=== PATIENT | male | born 1955 | race Caucasian/White ===

== ENCOUNTER 2018-05-30 03:04 | Inpatient (IN) | payer BC ==
[2018-05-30] VITALS (23 sets, daily range): BP systolic 109–167; BP diastolic 68–97
[~2018-05-30] VITALS: Ht 180.3 cm; Wt 65.5 kg
[2018-05-30] MEDS ORDERED: HEPARIN for IV BOLUS 10,000 UNIT/10 ML VIAL. ONE ×2 (03:17→03:45)
[2018-05-30] MEDS ORDERED: HEPARIN 25,000UTS/500ML PREMIX 0 ML IV ONE (03:17)
[2018-05-30 03:31] LABS: BASO # 0.1 x10^3/uL (0.0-0.2); BASO % 1 % (0-3); EOS # 0.1 x10^3/uL (0.0-0.7); EOS % 1 % (0-3); HEMATOCRIT 50.2 % (39.0-53.0); HEMOGLOBIN 16.9 g/dL (13.0-17.5); LYMPH # 2.3 x10^3/uL (1.0-4.8); LYMPH % 15 % (24-48); MEAN CORPUSCULAR HEMOGLOBIN 31 pg (25-35); MEAN CORPUSCULAR HGB CONC 34 g/dL (31-37); MEAN CORPUSCULAR VOLUME 91 fL (79-100); MONO # 1.3 x10^3/uL (0.0-1.1); MONO % 8 % (0-9); NEUT # 11.4 x10^3uL (1.8-7.7); NEUT % 75 % (31-73); PLATELET COUNT 277 x10^3/uL (140-400); RED CELL DISTRIBUTION WIDTH 14.1 % (11.5-14.5); WHITE BLOOD COUNT 15.2 x10^3/uL (4.0-11.0)
[2018-05-30 03:40] LABS: PROTHROMBIN TIME PATIENT 11.5 SEC (11.7-14.0)
[2018-05-30 03:42] LABS: CALCIUM 9.2 mg/dL (8.5-10.1); CREATININE 1.3 mg/dL (0.7-1.3); GFR 56.1; POTASSIUM 4.4 mmol/L (3.5-5.1)
[2018-05-30] MEDS ORDERED: LIDOCAINE 1% Multi-Dose 20 ML VIAL. ONE (03:44)
[2018-05-30] MEDS ORDERED: IODIXANOL 320 MG/ML 100 ML VIAL. ONE ×2 (03:44→04:25)
[2018-05-30] MEDS ORDERED: NITROGLYCERIN 200 MCG/2 ML SYRINGE FOR CATH/VASC LAB. ONE (03:45)
[2018-05-30] MEDS ORDERED: VERAPAMIL 5 MG/2 ML VIAL. ONE (03:45)
[2018-05-30] MEDS ORDERED: MIDAZOLAM HCL/PF 2 MG/2 ML VIAL. ONE (03:45)
[2018-05-30] MEDS ORDERED: fentaNYL PF VIAL 100 MCG/2 ML VIAL ONE (03:45)
[2018-05-30 03:48] LABS: ALBUMIN 3.8 g/dL (3.4-5.0); ALBUMIN/GLOBULIN RATIO 1.1 (1.0-1.7); TOTAL BILIRUBIN 0.6 mg/dL (0.2-1.0); TOTAL PROTEIN 7.3 g/dL (6.4-8.2)
--- NOTE | 2018-05-30 03:59 | PDOC ---
MODERATE SEDATION ASSESSMENT RISKS/ALTERNATIVES Risks/Alternatives Risks and alternatives of this type of sedation and procedure discussed with: RISK/ALTERNATIVES: Patient H & P ON CHART H & P H & P on chart and reviewed for co-morbid conditions and appropriate labs. H&P ON CHART: Yes STATUS PREG STATUS ASSESSED: N/A MEDS/ALLERGIES REVIEWED Meds/Allergies Reviewed Medications and Allergies including time and route of recently administered narcotics and sedatives. MEDS/ALLERGIES REVIEWED: Yes ASA RATING ASA RATING: III AIRWAY ASSESSMENT Airway Assessment Airway patency, oral function limitations, presence of caps, crowns, dentures, partials, and ability to extend neck assessed. AIRWAY ASSESSMENT: Yes MALLAMPATI SCORE MALLAMPATI SCORE: II PRE-SEDATION ASSESSMENT PRE-SEDATION ASSESSMENT: Yes MELISSA MA MD May 30, 2018 03:59
--- NOTE | 2018-05-30 03:59 | PDOC2 ---
CARDIOLOGY CONSULT NOTE CHEIF COMPLAINT: Chest pain HPI: Pleasant 62 y.o w/ HTN only presenting with CP since 12 a.m. He thought it was heart burn and after no resolution over 2 hours, came to ER. In ER initial EKG showed inferior STEMI. slab lifting engineer activated. Upon arrival he was in stable condition, hypertensive but denied any dyspnea. He did have chest pain. He was given asa, hep and after discussion of r/b/a to cath, he was emergently transferred to the recyclable products sorter. PMHX: HTN Tobacco abuse SOCHX: Works in [employer]. +tobacco abuse FAMHX: +CAD CURRENT MEDS: Current Medications Medications (Trade) Dose Ordered Sig/Izzy Start Time Stop Time Status Last Admin Dose Admin Aspirin (Children'S Aspirin) 324 mg 1X ONCE 05/30/18 04:00 05/30/18 04:01 05/30/18 03:42 324 MG Fentanyl Citrate (Fentanyl 2ml Vial) 100 mcg STK-MED ONCE 05/30/18 03:45 05/30/18 03:46 DC Heparin Sodium (Porcine) (Heparin Sodium) 10,000 unit STK-MED ONCE 05/30/18 03:45 05/30/18 03:46 DC Heparin Sodium/ Dextrose 500 ml @ As Directed STK-MED ONCE 05/30/18 03:17 05/30/18 03:18 DC Heparin Sodium/ Sodium Chloride 1,000 ml @ As Directed STK-MED ONCE 05/30/18 03:44 05/30/18 03:45 DC Iodixanol (Visipaque 320) 100 ml STK-MED ONCE 05/30/18 03:44 05/30/18 03:45 DC Lidocaine HCl (Lidocaine 1% 20ml Vial) 20 ml STK-MED ONCE 05/30/18 03:44 05/30/18 03:45 DC Midazolam HCl (Versed) 2 mg STK-MED ONCE 05/30/18 03:45 05/30/18 03:46 DC Nitroglycerin (Nitroglycerin) 200 mcg STK-MED ONCE 05/30/18 03:45 05/30/18 03:46 DC Nitroglycerin/ Dextrose 250 ml @ 0 mls/hr 1X ONCE 05/30/18 04:00 05/30/18 04:01 UNV 05/30/18 03:52 3 MLS/HR Verapamil HCl (Verapamil) 5 mg STK-MED ONCE 05/30/18 03:45 05/30/18 03:46 DC ALLERGIES: Allergies Coded Allergies Type Severity Reaction Last Updated Verified No Known Drug Allergies 05/30/18 No ROS: negative for 12/24 systems reviewed unless otherwise noted above in HPI PHYSICAL EXAM: Vital Signs: Vital Signs Date Time Temp Pulse Resp B/P (MAP) Pulse Ox O2 Delivery O2 Flow Rate FiO2 05/30/18 03:20 98.4 104 24 185/103 (130) 97 Room Air 98.4 Physical Exam: GEN.: No apparent distress. Alert and oriented. HEENT: Head is normocephalic, atraumatic NECK: Supple. LUNGS: Clear to auscultation. HEART: RRR, S1, S2 present. Peripheral pulses intact ABDOMEN: Soft, nontender. Positive bowel sounds. EXTREMITIES: Without any cyanosis. NEUROLOGIC: Normal speech, normal tone PSYCHIATRIC: Normal affect, normal mood. SKIN: No ulcerations DIAGNOSTIC TESTING: EKG: Inferior STEMI. Lab hgb/plts/cr wnl. Trop pending. ASSESSMENT: 1. Inferior STEMI 2. HTN 3. Tobacco abuse. PLAN: 1. Plan for cardiac cath. Final recommendations pending cath. MELISSA MA MD May 30, 2018 03:59
[2018-05-30] MEDS ORDERED: fentaNYL PF VIAL 100 MCG/2 ML VIAL IV ONE ×2 (04:00→04:30)
[2018-05-30] MEDS ORDERED: NITROGLYCERIN PREMIX 250 ML IV ONE (04:00)
[2018-05-30] MEDS ORDERED: HEPARIN for IV BOLUS 10,000 UNIT/10 ML VIAL. IV ONE (04:00)
[2018-05-30] MEDS ORDERED: ASPIRIN CHEWABLE 81 MG TABLET. PO ONE (04:00)
[2018-05-30] MEDS ORDERED: NITROGLYCERIN 200 MCG/2 ML SYRINGE FOR CATH/VASC LAB. IART ONE (04:15)
--- NOTE | 2018-05-30 04:19 | PHYS DOC ---
Past Medical History Past Medical History: Hypertension Past Surgical History: No Surgical History Additional Information: 2-2.5PPD Alcohol Use: Rarely Drug Use: Marijuana Adult General Chief Complaint Chief Complaint: CHEST PAIN HPI HPI Patient is a 62 year old M WITH cc of chest pain. onset midnight moderate in nature nonradiating center of chest pressure has not seen doctor in thirty years or more is a smoker brother had mi a couple months ago bib private car i saw ekg at 314 called stemi 315 talked to william at 317 Review of Systems Review of Systems mota by acuity Physical Exam Physical Exam Constitutional: Well developed, well nourished, no acute distress, non-toxic appearance. [] HENT: Normocephalic, atraumatic, bilateral external ears normal, oropharynx moist, no oral exudates, nose normal. [] Eyes: PERRLA, EOMI, conjunctiva normal, no discharge. [] Neck: Normal range of motion, no tenderness, supple, no stridor. [] Cardiovascular:Heart rate regular rhythm, 2/6 murmur Lungs & Thorax: Bilateral breath sounds clear to auscultation [] Abdomen: Bowel sounds normal, soft, no tenderness, no masses, no pulsatile masses. [] Skin: Warm, dry, no erythema, no rash. [] Back: No tenderness, no CVA tenderness. [] Extremities: No tenderness, no cyanosis, no clubbing, ROM intact, no edema. [] Neurologic: Alert and oriented X 3, normal motor function, normal sensory function, no focal deficits noted. [] Current Patient Data Vital Signs bp 190's hr 90's sat okay rr 14 EKG EKG stemi inferior wall noted rate [address] depressions noted. no st elev seen on right sided[] Radiology/Procedures Radiology/Procedures [] Impressions: popssible abnormality at right lung base but somewhat poor film, may need repeat once more stable Course & Med Decision Making Course & Med Decision Making Pertinent Labs and Imaging studies reviewed. (See chart for details) []stemi see hpi for ed course pt given above tx, and was taken to quality control lab tech in critical but stable condition dr thomas saw the patient in the er and the patient left the er in appropriate timeframe Critical care time was 40 minutes exclusive of procedures. Dragon Disclaimer Dragon Disclaimer This electronic medical record was generated, in whole or in part, using a voice recognition dictation system. Departure Departure Impression: Primary Impression: STEMI (ST elevation myocardial infarction) Disposition: 09 ADMITTED INPATIENT Condition: CRITICAL Referrals: NO PCP (PCP) ROMA SAHA MD May 30, 2018 04:18
[2018-05-30] MEDS ORDERED: LIDOCAINE 1% Multi-Dose 20 ML VIAL. INJ ONE (04:30)
[2018-05-30] MEDS ORDERED: VERAPAMIL 5 MG/2 ML VIAL. IART ONE (04:30)
[2018-05-30] MEDS ORDERED: MIDAZOLAM HCL/PF 2 MG/2 ML VIAL. IV ONE (04:30)
[2018-05-30] MEDS ORDERED: HEPARIN for IV BOLUS 10,000 UNIT/10 ML VIAL. IART ONE (04:30)
[2018-05-30] MEDS ORDERED: IODIXANOL 320 MG/ML 100 ML VIAL. IART ONE (04:30)
[2018-05-30] MEDS ORDERED: hydrALAZINE 20 MG/ML VIAL. ONE (04:35)
[2018-05-30] MEDS ORDERED: niCARdipine 50 MG in IV NORMAL SALINE 250ML 250 ML IV PRN (04:45)
[2018-05-30] MEDS ORDERED: hydrALAZINE 20 MG/ML VIAL. IVP ONE (05:00)
[2018-05-30] MEDS ORDERED: ATROPINE 0.5 MG/5 ML DISP.SYRINGE. IV PRN (05:00)
[2018-05-30] MEDS ORDERED: 0.9 % SODIUM CHLORIDE 10 ML DISP.SYRIN. IV PRN (05:00)
[2018-05-30] MEDS ORDERED: ACETAMINOPHEN 325 MG TABLET. PO PRN (05:00)
[2018-05-30] MEDS ORDERED: NITROGLYCERIN SUBLINGUAL 0.4 MG BOTTLE OF 25. SL PRN (05:00)
[2018-05-30] MEDS ORDERED: AMIODARONE 150 MG in IV DEXTROSE 5% 100ML 100 ML IV PRN (05:00)
[2018-05-30] MEDS ORDERED: LIDOCAINE 2% 100 MG/5 ML SYRINGE. IV PRN (05:00)
--- NOTE | 2018-05-30 05:16 | CARD ---
MR#: [id number] Date of Study: 05/30/2018 Ordering Physician: MELISSA MONTOYA, Referring Physician: BELEN MOSER, Tech: RT Pb (R) KRISTOPHER APPROVED REPORT Technologist: RT Pb (R) KRISTOPHER Nurse: Bonnie Workman R.N. Procedure(s) performed: moderate sedation 51 MINUTES LHC, Coronary angiography, Aortogram, Left ventriculography HISTORY The patient is a 62 year-old male with a history of : tobacco history() , hypertension. INDICATION The indication(s) include : STEMI . [facility] Clinical Frailty Scale [facility] Clinical Frailty Scale: Well Heart Failure Heart Failure: No PROCEDURE NARRATIVE CLINICAL INFORMATION: 62-year-old man with past medical history of hypertension and tobacco abuse as well as significant [facility] history of coronary artery disease presented to the ER with stuttering chest pain for approximat kemar 2 hours. Initial EKG was suggestive of inferior ST elevation IA. The Wood Pattern Maker was activated and t he patient was brought emergently to the catheter lab. INFORMED CONSENT: After explaining the risks and benefits of the procedure and alternatives, informed VERBAL consent was obtained. The patient was brought emergently to the cardiac catheterization lab. A timeout was performed confi rming the patient's name, date of , procedure, and site of procedure. All necessary personnel w ere wearing the appropriate protective equipment and radiation monitor devices. (See nursing notes for medications administered). ACCESS: The right wrist was sterilely prepped and draped in the usual fashion. The right wrist was infiltrat ed with 1 mL of 2% lidocaine for subcutaneous anesthesia. A 6 Frisian Terumo glide sheath was inserte d into the right radial artery without difficulty. CORONARY ANGIOGRAPHY: Right and left coronary angiography was performed using a 6Fr TIG 4.0 catheter and a JR4 guide marisol ter. Left ventricular end diastolic pressure was obtained with a pigtail catheter and pullback was p erformed after left ventriculography. A supravalvular aortography was performed to rule out dissectio n. All catheter exchanges and advancements were performed over a guidewire. CLOSURE: At case completion the right radial sheath was removed and a Terumo radial band was applied with 13 m l of air. COMPLICATIONS: The patient tolerated the procedure well and there were no immediate complications. FINDINGS: HEMODYNAMICS: LVEDP 15 mm Hg No gradient on LV to aortic pullback. AO: 200/90 LEFT VENTRICULOGRAM: EF 55% Anterobasal: Normal. Anterolateral: Normal Apical: Normal Diaphragmatic: Normal Posterobasal: Normal CORONARY ANGIOGRAPHY: LM is a large caliber vessel with mild luminal irregularities. LAD is a large caliber vessel with normal angiographic appearance. D1 is a moderate caliber vessel with normal angiographic apeparance. LCx is a moderate caliber non-dominant vessel with mild luminal irregularities of up to 30%. OM1 is a small caliber vessel with normal angiographic appearance. OM2 is a small caliber vessel with mild luminal irregularities. RCA is a large caliber dominant vessel with with mild irregularities of up to 30% stenosis. The ostiu m of the RCA on initial injection suggestive of thrombus with possible embolization into the conus/ri ght atrial branch. RPDA and RPL are moderate caliber vessels with mild luminal irregularities. Cannot rule out small dis krissy vessel cut-off suggestive of embolic phenomenon. Overall based on normal LV function, no obvious thrombus, sustaining noted in the large vessels an in tervention was deferred in favor of medical therapy with anticoagulation. Etiology is likely small ve ssel ischemic disease in the setting of HTN, tobacco abuse versus occult emboli. At present, no clear intervenable lesions. Conclusion 1. Probable small vessel ischemic disease versus occult embolic phenomenon 2. Normal LVEDP, Normal LV function. No significant coronary disease. 3. No evidence of aortic dissection. Recommendations ASA 81mg daily Hep gtt per protocol for 24 hours High dose statin therapy Nicardipine gtt for BP control. Signed by : Melissa Montoya, Electronically Approved : 05/30/2018 05:15:38
[2018-05-30] MEDS: fentaNYL PF VIAL 100 MCG/2 ML VIAL IV PRN ×3 (05:20→12:22)
[2018-05-30] MEDS ORDERED: ANTI-COAG MONITOR BY PHARMACY. MC PRN (05:30)
[2018-05-30] MEDS: HEPARIN for IV BOLUS 10,000 UNIT/10 ML VIAL. IV PRN ×3 (05:35→20:07)
[2018-05-30] MEDS: HEPARIN 25,000UTS/500ML PREMIX 500 ML IV PRN (05:38)
[2018-05-30] MEDS ORDERED: LISI10TA2 PO (05:58)
--- NOTE | 2018-05-30 05:59 | EKG ---
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
--- NOTE | 2018-05-30 06:00 | EKG ---
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
--- NOTE | 2018-05-30 06:25 | NUR ---
Patient arrived on unit at 0515 accompanied by CL RNs. Patient alert and oriented, able to answer all admission questions when asked. Patient complains of pain 5/10 in chest, does not radiate, feels like a dull heaviness. Fentanyl was given with relief. TR band over right radial access site. Educated on need for smoking cessation. Will continue to monitor.
--- NOTE | 2018-05-30 07:44 | RAD ---
PROCEDURE: PORTABLE CHEST 1V CLINICAL INDICATION: chest pain COMPARISON: None FINDINGS: No pneumothorax identified. Cardiac and mediastinal contours unremarkable. No pulmonary consolidation or acute airspace disease. No acute osseous abnormalities identified. IMPRESSION: No pulmonary consolidation or acute airspace disease. Electronically signed by: Dallas Scales DO (05/30/2018 7:41 AM) [facility]
--- NOTE | 2018-05-30 12:52 | PDOC1 ---
History and Physical Date of Admission Date of Admission 05/30/2018 Identification/Chief Complaint Chief Complaint My chest hurt Problems: (1) STEMI (ST elevation myocardial infarction) Source Source: Chart review, Patient History of Present Illness History of Present Illness Patient is a 62-year-old gentleman with no significant past medical history has a long-standing history of tobacco abuse was in his usual state of health until the evening of his admission when after dinner he went to lay down. Discomfort over his precordial area woke him up from his sleep midnight the patient decided to pace around his household and tried to go back to sleep while watching TV. Patient says that discomfort It Was Indigestion He Did Not Have Radiation to the Arm and Jaw. The Patient Denied Any Diaphoresis No Sensation of Impending Doom No Vomiting Reported No Alleviating or Aggravating Factors. Due to the progressive nature of his pain and patient decided to come to the emergency department for evaluation. He was noted to have acute ST segment elevations of the inferior leads pumping a STEMI protocol patient was taken emergently to the cardiac catheter lab with the following results: LEFT VENTRICULOGRAM: EF 55% Anterobasal: Normal. Anterolateral: Normal Apical: Normal Diaphragmatic: Normal Posterobasal: Normal CORONARY ANGIOGRAPHY: LM is a large caliber vessel with mild luminal irregularities. LAD is a large caliber vessel with normal angiographic appearance. D1 is a moderate caliber vessel with normal angiographic apeparance. LCx is a moderate caliber non-dominant vessel with mild luminal irregularities of up to 30%. OM1 is a small caliber vessel with normal angiographic appearance. OM2 is a small caliber vessel with mild luminal irregularities. RCA is a large caliber dominant vessel with with mild irregularities of up to 30 % stenosis. The ostium of the RCA on initial injection suggestive of thrombus with possible embolization into the conus/right atrial branch. RPDA and RPL are moderate caliber vessels with mild luminal irregularities. Cannot rule out small distal vessel cut-off suggestive of embolic phenomenon. Overall based on normal LV function, no obvious thrombus, sustaining noted in the large vessels an intervention was deferred in favor of medical therapy with anticoagulation. Etiology is likely small vessel ischemic disease in the setting of HTN, tobacco abuse versus occult emboli. At present, no clear intervenable lesions. Conclusion 1. Probable small vessel ischemic disease versus occult embolic phenomenon 2. Normal LVEDP, Normal LV function. No significant coronary disease. 3. No evidence of aortic dissection. Recommendations ASA 81mg daily Hep gtt per protocol for 24 hours High dose statin therapy Nicardipine gtt for BP control. Patient is being seen in the intensive care unit post catheter. He is in no acute distress he denies chest discomfort he relates to me that his diet has been quite poor ever since he got and years ago. He usually eats at [employer] every day and smokes about a pack of cigarettes a day. Extensive counseling regarding dietary changes and the need for quitting smoking was stressed Current Medications Current Medications Current Medications Medications (Trade) Dose Ordered Sig/Izzy Start Time Stop Time Status Last Admin Dose Admin Acetaminophen (Tylenol) 650 mg PRN Q6HRS PRN 05/30/18 05:00 Amiodarone HCl 150 mg/Dextrose 103 ml @ 600 mls/hr 1X PRN PRN 05/30/18 05:00 Aspirin (Children'S Aspirin) 324 mg 1X ONCE 05/30/18 04:00 05/30/18 04:01 DC 05/30/18 03:42 324 MG Atropine Sulfate (ATROPINE 0.5mg SYRINGE) 0.5 mg PRN 1X PRN 05/30/18 05:00 Fentanyl Citrate (Fentanyl 2ml Vial) 50 mcg PRN Q1HR PRN 05/30/18 05:00 05/30/18 12:22 50 MCG Heparin Sodium (Porcine) (Heparin Sodium) 1,950 unit PRN Q6HRS PRN 05/30/18 05:30 05/30/18 05:35 1,950 UNIT Heparin Sodium/ Dextrose 500 ml @ 0 mls/hr CONT PRN 05/30/18 05:30 05/30/18 05:38 18.507 MLS/HR Heparin Sodium/ Sodium Chloride (HEPARIN for ARTERIAL LINE FLUSH) 1,000 unit 1X ONCE 05/30/18 04:30 05/30/18 04:31 DC 05/30/18 04:55 1,000 UNIT Hydralazine HCl (Apresoline Inj) 10 mg 1X ONCE 05/30/18 05:00 05/30/18 05:01 DC 05/30/18 04:57 10 MG Info (Anti-Coagulation Monitoring By Pharmacy) 1 each PRN DAILY PRN 05/30/18 05:30 05/30/18 05:26 1 EACH Iodixanol (Visipaque 320) 100 ml STK-MED ONCE 05/30/18 04:25 05/30/18 04:26 DC Lidocaine HCl (Lidocaine 1% 20ml Vial) 20 ml 1X ONCE 05/30/18 04:30 05/30/18 04:31 DC 05/30/18 04:56 2 ML Lidocaine HCl (Lidocaine HCl 2% Abboject) 100 mg 1X PRN PRN 05/30/18 05:00 Midazolam HCl (Versed) 2 mg 1X ONCE 05/30/18 04:30 05/30/18 04:31 DC 05/30/18 04:58 2 MG Nicardipine HCl (Cardene) 25 mg STK-MED ONCE 05/30/18 04:31 05/30/18 04:32 DC Nicardipine HCl 50 mg/Sodium Chloride 250 ml @ 25 mls/hr CONT PRN 05/30/18 04:45 05/30/18 04:43 20 MLS/HR Nitroglycerin (Nitroglycerin) 200 mcg 1X ONCE 05/30/18 04:15 05/30/18 04:23 DC 05/30/18 04:15 200 MCG Nitroglycerin (Nitrostat) 0.4 mg PRN Q5MIN PRN 05/30/18 05:00 Nitroglycerin/ Dextrose 250 ml @ 0 mls/hr 1X ONCE 05/30/18 04:00 05/30/18 04:01 DC 05/30/18 03:52 3 MLS/HR Sodium Chloride (Normal Saline Flush) 3 ml QSHIFT PRN 05/30/18 05:00 Verapamil HCl (Verapamil) 2.5 mg 1X ONCE 05/30/18 04:30 05/30/18 04:31 DC 05/30/18 04:57 2.5 MG Allergies Allergies Allergies Coded Allergies Type Severity Reaction Last Updated Verified No Known Drug Allergies 05/30/18 No ROS Review of System CONSTITUTIONAL: No fever or chills EYES: No recent changes SKIN: No rash or itching CARDIOVASCULAR: No chest pain, syncope, palpitations, or edema RESPIRATORY: No SOB or cough GASTROINTESTINAL: No nausea, vomiting or abdominal pain NEUROLOGICAL: No headaches or weakness ENDOCRINE: No cold or heat intolerance GENITOURINARY: No urgency or frequency of urination MUSCULOSKELETAL: No back pain or joint pain LYMPHATICS: No enlarged lymph nodes PSYCHIATRIC: No anxiety or depression Physical Exam Physical Exam GEN.: No apparent distress. Alert and oriented. HEENT: Head is normocephalic, atraumatic NECK: Supple. LUNGS: Clear to auscultation. HEART: RRR, S1, S2 present. Peripheral pulses intact ABDOMEN: Soft, nontender. Positive bowel sounds. EXTREMITIES: Without any cyanosis. NEUROLOGIC: Normal speech, normal tone PSYCHIATRIC: Normal affect, normal mood. SKIN: No ulcerations Vitals Vitals Vital Signs Date Time Temp Pulse Resp B/P (MAP) Pulse Ox O2 Delivery O2 Flow Rate FiO2 05/30/18 12:22 18 96 Room Air 05/30/18 12:00 98.0 96 143/81 (101) 98.0 05/30/18 05:00 2.0 Labs Labs Laboratory Tests Test 05/30/18 03:17 05/30/18 06:08 05/30/18 09:20 05/30/18 11:35 White Blood Count 15.2 x10^3/uL (4.0-11.0) Red Blood Count 5.50 x10^6/uL (4.30-5.70) Hemoglobin 16.9 g/dL (13.0-17.5) Hematocrit 50.2 % (39.0-53.0) Mean Corpuscular Volume 91 fL (79-100) Mean Corpuscular Hemoglobin 31 pg (25-35) Mean Corpuscular Hemoglobin Concent 34 g/dL (31-37) Red Cell Distribution Width 14.1 % (11.5-14.5) Platelet Count 277 x10^3/uL (140-400) Neutrophils (%) (Auto) 75 % (31-73) Lymphocytes (%) (Auto) 15 % (24-48) Monocytes (%) (Auto) 8 % (0-9) Eosinophils (%) (Auto) 1 % (0-3) Basophils (%) (Auto) 1 % (0-3) Neutrophils # (Auto) 11.4 x10^3uL (1.8-7.7) Lymphocytes # (Auto) 2.3 x10^3/uL (1.0-4.8) Monocytes # (Auto) 1.3 x10^3/uL (0.0-1.1) Eosinophils # (Auto) 0.1 x10^3/uL (0.0-0.7) Basophils # (Auto) 0.1 x10^3/uL (0.0-0.2) Prothrombin Time 11.5 SEC (11.7-14.0) Prothromb Time International Ratio 0.9 (0.8-1.1) Sodium Level 138 mmol/L (136-145) Potassium Level 4.4 mmol/L (3.5-5.1) Chloride Level 100 mmol/L (98-107) Carbon Dioxide Level 25 mmol/L (21-32) Anion Gap 13 (6-14) Blood Urea Nitrogen 33 mg/dL (8-26) Creatinine 1.3 mg/dL (0.7-1.3) Estimated GFR (Cockcroft-Gault) 56.1 BUN/Creatinine Ratio 25 (6-20) Glucose Level 114 mg/dL (70-99) Calcium Level 9.2 mg/dL (8.5-10.1) Total Bilirubin 0.6 mg/dL (0.2-1.0) Aspartate Amino Transf (AST/SGOT) 18 U/L (15-37) Alanine Aminotransferase (ALT/SGPT) 24 U/L (16-63) Alkaline Phosphatase 109 U/L (46-116) Troponin I Quantitative 0.185 ng/mL (0.000-0.055) 1.205 ng/mL (0.000-0.055) 6.613 ng/mL (0.000-0.055) TR-Lhg-M-Type Natriuretic Peptide 68 pg/mL (0-124) Total Protein 7.3 g/dL (6.4-8.2) Albumin 3.8 g/dL (3.4-5.0) Albumin/Globulin Ratio 1.1 (1.0-1.7) Heparin Anti-Xa Act, Unfractionated < 0.10 IU/mL (0.30-0.70) Laboratory Tests Test 05/30/18 03:17 05/30/18 06:08 05/30/18 09:20 05/30/18 11:35 White Blood Count 15.2 x10^3/uL (4.0-11.0) Red Blood Count 5.50 x10^6/uL (4.30-5.70) Hemoglobin 16.9 g/dL (13.0-17.5) Hematocrit 50.2 % (39.0-53.0) Mean Corpuscular Volume 91 fL (79-100) Mean Corpuscular Hemoglobin 31 pg (25-35) Mean Corpuscular Hemoglobin Concent 34 g/dL (31-37) Red Cell Distribution Width 14.1 % (11.5-14.5) Platelet Count 277 x10^3/uL (140-400) Neutrophils (%) (Auto) 75 % (31-73) Lymphocytes (%) (Auto) 15 % (24-48) Monocytes (%) (Auto) 8 % (0-9) Eosinophils (%) (Auto) 1 % (0-3) Basophils (%) (Auto) 1 % (0-3) Neutrophils # (Auto) 11.4 x10^3uL (1.8-7.7) Lymphocytes # (Auto) 2.3 x10^3/uL (1.0-4.8) Monocytes # (Auto) 1.3 x10^3/uL (0.0-1.1) Eosinophils # (Auto) 0.1 x10^3/uL (0.0-0.7) Basophils # (Auto) 0.1 x10^3/uL (0.0-0.2) Prothrombin Time 11.5 SEC (11.7-14.0) Prothromb Time International Ratio 0.9 (0.8-1.1) Sodium Level 138 mmol/L (136-145) Potassium Level 4.4 mmol/L (3.5-5.1) Chloride Level 100 mmol/L (98-107) Carbon Dioxide Level 25 mmol/L (21-32) Anion Gap 13 (6-14) Blood Urea Nitrogen 33 mg/dL (8-26) Creatinine 1.3 mg/dL (0.7-1.3) Estimated GFR (Cockcroft-Gault) 56.1 BUN/Creatinine Ratio 25 (6-20) Glucose Level 114 mg/dL (70-99) Calcium Level 9.2 mg/dL (8.5-10.1) Total Bilirubin 0.6 mg/dL (0.2-1.0) Aspartate Amino Transf (AST/SGOT) 18 U/L (15-37) Alanine Aminotransferase (ALT/SGPT) 24 U/L (16-63) Alkaline Phosphatase 109 U/L (46-116) Troponin I Quantitative 0.185 ng/mL (0.000-0.055) 1.205 ng/mL (0.000-0.055) 6.613 ng/mL (0.000-0.055) JX-Twf-H-Type Natriuretic Peptide 68 pg/mL (0-124) Total Protein 7.3 g/dL (6.4-8.2) Albumin 3.8 g/dL (3.4-5.0) Albumin/Globulin Ratio 1.1 (1.0-1.7) Heparin Anti-Xa Act, Unfractionated < 0.10 IU/mL (0.30-0.70) VTE Prophylaxis Ordered VTE Prophylaxis Devices: Yes VTE Pharmacological Prophylaxi: Yes Assessment/Plan Assessment/Plan STEMI code the emergency department status post left heart catheter with no amenable lesions for stenting Hypertension Dyslipidemia Plan: Follow recommendations from cardiology Stepdown unit when bed available Reassess in the a.m. Further recommendations based on the clinical course HIWOT ROBLES MD May 30, 2018 12:52
[2018-05-30] MEDS ORDERED: LABETALOL 20 MG/4 ML DISP.SYRIN. IVP PRN (14:45)
[2018-05-30] MEDS ORDERED: LISINOPRIL 10 MG TABLET PO ONE (15:00)
[2018-05-30] MEDS: ASPIRIN ENTERIC COATED 81 MG TABLET.DR. PO SCH (15:01)
[2018-05-30 15:18] LABS: CHOLESTEROL/HDL RATIO 5.3
--- NOTE | 2018-05-30 16:43 | CARD ---
MR#: [id number] Date of Study: 05/30/2018 Ordering Physician: MARY FLAHERTY, Referring Physician: BELEN MOSER Tech: Adri Lopez DEJA APPROVED REPORT EXAM: Two-dimensional and M-mode echocardiogram with Doppler and color Doppler. Other Information Quality : Technically Limited Technically limited study due to smoking-lung interference/rib space INDICATION STEMI 2D DIMENSIONS Left Atrium(2D)2.2 (1.6-4.0cm)IVSd1.2 (0.7-1.1cm) Aortic Root(2D)2.4 (2.0-3.7cm)LVDd4.0 (3.9-5.9cm) LVOT Diameter2.0 (1.8-2.4cm)PWd1.3 (0.7-1.1cm) LVDs2.9 (2.5-4.0cm)FS (%) 26.8 % SV37.3 ml Aortic Valve AoV Peak Dillon.93.0cm/sAoV VTI14.6cm AO Peak GR.3.5mmHgLVOT VTI 10.63cm AO Mean GR.2mmHgAVA (VTI)2.30cm2 AI P 1/2 [id number] Tricuspid Valve TR P. [id number]/sRAP [id number] TR Peak Gr.[id number] LEFT VENTRICLE The left ventricle is normal size. There is mild concentric left ventricular hypertrophy. Left ventri maverick systolic function is low normal. The Ejection Fraction is 50-55%. There are no regional wall sergio on abnormalities. RIGHT VENTRICLE The right ventricle is normal size. The right ventricular systolic function is normal. ATRIA The left atrium size is normal. The right atrium size is normal. The interatrial septum is intact wit h no evidence for an atrial septal defect or patent foramen ovale as noted on 2-D or Doppler imaging. AORTIC VALVE The aortic valve is calcified but opens well. Doppler and Color Flow revealed no significant aortic r egurgitation. There is no significant aortic valvular stenosis. MITRAL VALVE The mitral valve is calcified but opens well. There is no evidence of mitral valve prolapse. There is no mitral valve stenosis. Doppler and Color-flow revealed trace to mild mitral regurgitation. TRICUSPID VALVE The tricuspid valve is normal in structure and function. Doppler and Color Flow revealed trace tricus pid regurgitation. The PA pressure was estimated at 30 mmHg. There is no tricuspid valve stenosis. PULMONIC VALVE The pulmonary valve is normal in structure and function. Doppler and Color Flow revealed trace pulmon ic valvular regurgitation. There is no pulmonic valvular stenosis. GREAT VESSELS The aortic root is normal in size. The ascending aorta is not well seen. The IVC is normal in size an d collapses >50% with inspiration. PERICARDIAL EFFUSION There is no evidence of significant pericardial effusion. Critical Notification Critical Value: No <Conclusion> The left ventricle is normal size. Left ventricle systolic function is low normal. The Ejection Fraction is 50-55%. There is mild concentric left ventricular hypertrophy. There is no significant aortic valvular stenosis. Doppler and Color Flow revealed no significant aortic regurgitation. Doppler and Color-flow revealed trace to mild mitral regurgitation. Doppler and Color Flow revealed trace tricuspid regurgitation. The PA pressure was estimated at 30 mmHg. Signed by : Thomas Castro MD Electronically Approved : 05/30/2018 16:43:18
[2018-05-30] MEDS ORDERED: ATORVASTATIN CALCIUM 40 MG TABLET. PO SCH (21:00)
[2018-05-31 03:50] VITALS: BP 117/73
[2018-05-31] MEDS: HEPARIN 25,000UTS/500ML PREMIX 500 ML IV PRN (04:16)
[2018-05-31 07:26] VITALS: BP 125/86
--- NOTE | 2018-05-31 07:51 | EKG ---
[facility] [address] [place] [address] Test Date: 2018-05-31 Test Time: 07:45:09 Pat Name: SHAKIRA ANN Department: Room: 261 1 Gender: M Certified Orthotist/Pedorthist: LETY : 1955 Requested By: MELISSA MA Order Number: [id number] Reading MD: Melissa Ma MD Measurements Intervals [place] Rate: 78 P: 61 NH: 162 QRS: -90 QRSD: 130 T: 8 QT: 400 QTc: 460 Interpretive Statements SINUS RHYTHM RBBB INFERIOR INFARCT Electronically Signed On 06-01-2018 17:20:06 CDT by Melissa Ma MD
[2018-05-31] MEDS: ASPIRIN ENTERIC COATED 81 MG TABLET.DR. PO SCH (08:30)
[2018-05-31] MEDS ORDERED: LISINOPRIL 10 MG TABLET PO SCH (09:00)
--- NOTE | 2018-05-31 10:51 | PDOC ---
CARDIO Progress Notes Date and Time Date of Service 05/31/18 Time of Evaluation 1015 Subjective Subjective: No Chest Pain, No shortness of breath, No Palpitations Vitals Vitals Vital Signs Date Time Temp Pulse Resp B/P (MAP) Pulse Ox O2 Delivery O2 Flow Rate FiO2 05/31/18 08:30 81 125/86 05/31/18 08:00 Room Air 2.0 05/31/18 07:26 98.1 18 93 98.1 Weight Weight [ ] Input and Output Intake and Output Intake and Output 05/31/18 07:00 Intake Total 2009.15 ml Output Total 1275 ml Balance 734.15 ml Intake Oral 1440 ml IV Total 296.15 ml Other 273 ml Output Urine Total 1275 ml # Voids 1 Laboratory Labs Laboratory Tests Test 05/30/18 11:35 05/30/18 19:15 05/31/18 01:55 05/31/18 08:15 Heparin Anti-Xa Act, Unfractionated < 0.10 IU/mL (0.30-0.70) 0.11 IU/mL (0.30-0.70) 0.43 IU/mL (0.30-0.70) 0.40 IU/mL (0.30-0.70) Physical Exam HEENT: Neck Supple W Full Motion Chest: Symmetric Heart: S1S2, RRR Abdomen: Soft N/T Extremities: No Edema Neurology: alert, oriented, follow commands Assessment Assessment 1. STEMI; cardiac cath without significant coronary disease. Culprit small vessel ischemic disease versus occult embolic phenomenon. Echo showed preserved LV systolic function with an EF of 50-55%. 2. Hypertension; controlled 3. Dyslipidemia; statin 4. Tobaccoism Recommendations Discontinue heparin. Add Eliquis for OAC Continue ASA, statin, EWA Add low-dose BB Discussed/encouraged smoking cessation May discharge from a CV standpoint and f/u in our office with Dr. Montoya as scheduled DYLAN RAMOS APRN May 31, 2018 10:51
[2018-05-31 11:10] VITALS: BP 121/70
--- NOTE | 2018-05-31 11:11 | PDOC ---
Core Measures: STEMI/NSTEMI Preference Rocky: ASA on Arrival: Yes ASA on Discharge: Yes Discharge Beta Kunal: Yes Discharge EWA-I/ARB: Yes Discharge statin: Yes Smoking cessation counseling: Yes Cardiac rehabilitation: Yes Eval of LV Systolic Function: Yes (50-55%) DYLAN RAMOS APRN May 31, 2018 11:11
--- NOTE | 2018-05-31 12:00 | PDOC ---
PROGRESS NOTES History of Present Illness History of Present Illness Assessment/Plan Assessment/Plan STEMI code the emergency department status post left heart catheter with no amenable lesions for stenting Hypertension Dyslipidemia Plan: Follow recommendations from cardiology Stepdown unit when bed available May discharge from a CV standpoint and f/u with Dr. Montoya as scheduled feeling ok, agrees to stop smoking, neds off work until sees PCP D/C PLANNING 34 MIN Vitals Vitals Vital Signs Date Time Temp Pulse Resp B/P (MAP) Pulse Ox O2 Delivery O2 Flow Rate FiO2 05/31/18 11:10 97.9 80 18 121/70 (87) 94 Room Air 97.9 05/31/18 08:00 2.0 Physical Exam Physical Exam Constitutional: Well developed, well nourished, no acute distress, non-toxic appearance. [] HENT: Normocephalic, atraumatic, bilateral external ears normal, oropharynx moist, no oral exudates, nose normal. [] Eyes: PERRLA, EOMI, conjunctiva normal, no discharge. [] Neck: Normal range of motion, no tenderness, supple, no stridor. [] Cardiovascular:Heart rate regular rhythm, 2/6 murmur Lungs & Thorax: Bilateral breath sounds clear to auscultation [] Abdomen: Bowel sounds normal, soft, no tenderness, no masses, no pulsatile masses. [] Skin: Warm, dry, no erythema, no rash. [] Back: No tenderness, no CVA tenderness. [] Extremities: No tenderness, no cyanosis, no clubbing, ROM intact, no edema. [] Neurologic: Alert and oriented X 3, normal motor function, normal sensory function, no focal deficits noted. [] General: Alert, Oriented X3, Cooperative, No acute distress Heart: Regular rate Lungs: Clear Extremities: No cyanosis Labs LABS Laboratory Tests Test 05/30/18 19:15 05/31/18 01:55 05/31/18 08:15 Heparin Anti-Xa Act, Unfractionated 0.11 IU/mL (0.30-0.70) 0.43 IU/mL (0.30-0.70) 0.40 IU/mL (0.30-0.70) Comment Review of Relevant I have reviewed the following items alexandra (where applicable) has been applied. Labs Laboratory Tests Test 05/30/18 03:17 05/30/18 06:00 05/30/18 06:08 05/30/18 09:20 White Blood Count 15.2 x10^3/uL (4.0-11.0) Red Blood Count 5.50 x10^6/uL (4.30-5.70) Hemoglobin 16.9 g/dL (13.0-17.5) Hematocrit 50.2 % (39.0-53.0) Mean Corpuscular Volume 91 fL (79-100) Mean Corpuscular Hemoglobin 31 pg (25-35) Mean Corpuscular Hemoglobin Concent 34 g/dL (31-37) Red Cell Distribution Width 14.1 % (11.5-14.5) Platelet Count 277 x10^3/uL (140-400) Neutrophils (%) (Auto) 75 % (31-73) Lymphocytes (%) (Auto) 15 % (24-48) Monocytes (%) (Auto) 8 % (0-9) Eosinophils (%) (Auto) 1 % (0-3) Basophils (%) (Auto) 1 % (0-3) Neutrophils # (Auto) 11.4 x10^3uL (1.8-7.7) Lymphocytes # (Auto) 2.3 x10^3/uL (1.0-4.8) Monocytes # (Auto) 1.3 x10^3/uL (0.0-1.1) Eosinophils # (Auto) 0.1 x10^3/uL (0.0-0.7) Basophils # (Auto) 0.1 x10^3/uL (0.0-0.2) Prothrombin Time 11.5 SEC (11.7-14.0) Prothromb Time International Ratio 0.9 (0.8-1.1) Sodium Level 138 mmol/L (136-145) Potassium Level 4.4 mmol/L (3.5-5.1) Chloride Level 100 mmol/L (98-107) Carbon Dioxide Level 25 mmol/L (21-32) Anion Gap 13 (6-14) Blood Urea Nitrogen 33 mg/dL (8-26) Creatinine 1.3 mg/dL (0.7-1.3) Estimated GFR (Cockcroft-Gault) 56.1 BUN/Creatinine Ratio 25 (6-20) Glucose Level 114 mg/dL (70-99) Calcium Level 9.2 mg/dL (8.5-10.1) Total Bilirubin 0.6 mg/dL (0.2-1.0) Aspartate Amino Transf (AST/SGOT) 18 U/L (15-37) Alanine Aminotransferase (ALT/SGPT) 24 U/L (16-63) Alkaline Phosphatase 109 U/L (46-116) Troponin I Quantitative 0.185 ng/mL (0.000-0.055) 1.205 ng/mL (0.000-0.055) 6.613 ng/mL (0.000-0.055) BY-Smy-D-Type Natriuretic Peptide 68 pg/mL (0-124) Total Protein 7.3 g/dL (6.4-8.2) Albumin 3.8 g/dL (3.4-5.0) Albumin/Globulin Ratio 1.1 (1.0-1.7) Nasal Screen MRSA (PCR) Negative (Negative) Triglycerides Level 111 mg/dL (0-150) Cholesterol Level 222 mg/dL (0-200) LDL Cholesterol, Calculated 158 mg/dL (0-100) VLDL Cholesterol, Calculated 22 mg/dL (0-40) Non-HDL Cholesterol Calculated 180 mg/dL (0-129) HDL Cholesterol 42 mg/dL (40-60) Cholesterol/HDL Ratio 5.3 Test 05/30/18 11:35 05/30/18 19:15 05/31/18 01:55 05/31/18 08:15 Heparin Anti-Xa Act, Unfractionated < 0.10 IU/mL (0.30-0.70) 0.11 IU/mL (0.30-0.70) 0.43 IU/mL (0.30-0.70) 0.40 IU/mL (0.30-0.70) Laboratory Tests Test 05/30/18 19:15 05/31/18 01:55 05/31/18 08:15 Heparin Anti-Xa Act, Unfractionated 0.11 IU/mL (0.30-0.70) 0.43 IU/mL (0.30-0.70) 0.40 IU/mL (0.30-0.70) Medications Current Medications Heparin Sodium (Porcine) (Heparin Sodium) 10,000 unit STK-MED ONCE .ROUTE ; Start 05/30/18 at 03:17; Stop 05/30/18 at 03:18; Status DC Heparin Sodium/ Dextrose 0 ml @ As Directed STK-MED ONCE IV ; Start 05/30/18 at 03:17; Stop 05/30/18 at 03:18; Status DC Aspirin (Children'S Aspirin) 324 mg 1X ONCE PO Last administered on 05/30/18at 03:42; Start 05/30/18 at 04:00; Stop 05/30/18 at 04:01; Status DC Fentanyl Citrate (Fentanyl 2ml Vial) 50 mcg 1X ONCE IV Last administered on at 03:42; Start 05/30/18 at 04:00; Stop 05/30/18 at 04:01; Status DC Heparin Sodium (Porcine) (Heparin Sodium) 4,000 unit 1X ONCE IV Last administered on 05/30/18at 03:18; Start 05/30/18 at 04:00; Stop 05/30/18 at 04:01 ; Status DC Iodixanol (Visipaque 320) 100 ml STK-MED ONCE .ROUTE ; Start 05/30/18 at 03:44; Stop 05/30/18 at 03:45; Status DC Lidocaine HCl (Lidocaine 1% 20ml Vial) 20 ml STK-MED ONCE .ROUTE ; Start at 03:44; Stop 05/30/18 at 03:45; Status DC Heparin Sodium/ Sodium Chloride 1,000 ml @ As Directed STK-MED ONCE .ROUTE ; Start 05/30/18 at 03:44; Stop 05/30/18 at 03:45; Status DC Fentanyl Citrate (Fentanyl 2ml Vial) 100 mcg STK-MED ONCE .ROUTE ; Start at 03:45; Stop 05/30/18 at 03:46; Status DC Midazolam HCl (Versed) 2 mg STK-MED ONCE .ROUTE ; Start 05/30/18 at 03:45; Stop 05/30/18 at 03:46; Status DC Heparin Sodium (Porcine) (Heparin Sodium) 10,000 unit STK-MED ONCE .ROUTE ; Start 05/30/18 at 03:45; Stop 05/30/18 at 03:46; Status DC Verapamil HCl (Verapamil) 5 mg STK-MED ONCE .ROUTE ; Start 05/30/18 at 03:45; Stop 05/30/18 at 03:46; Status DC Nitroglycerin (Nitroglycerin) 200 mcg STK-MED ONCE .ROUTE ; Start 05/30/18 at 03 :45; Stop 05/30/18 at 03:46; Status DC Nitroglycerin/ Dextrose 250 ml @ 0 mls/hr 1X ONCE IV Last administered on 05/30at 03:52; Start 05/30/18 at 04:00; Stop 05/30/18 at 04:01; Status DC Nitroglycerin (Nitroglycerin) 200 mcg 1X ONCE IART Last administered on at 04:15; Start 05/30/18 at 04:15; Stop 05/30/18 at 04:23; Status DC Verapamil HCl (Verapamil) 2.5 mg 1X ONCE IART Last administered on 05/30/18at 04:57; Start 05/30/18 at 04:30; Stop 05/30/18 at 04:31; Status DC Heparin Sodium (Porcine) (Heparin Sodium) 2,500 unit 1X ONCE IART Last administered on 05/30/18at 04:56; Start 05/30/18 at 04:30; Stop 05/30/18 at 04:31 ; Status DC Heparin Sodium/ Sodium Chloride (HEPARIN for ARTERIAL LINE FLUSH) 1,000 unit 1X ONCE IART Last administered on 05/30/18 04:55; Start 05/30/18 at 04:30; Stop 05/30/18 at 04:31; Status DC Heparin Sodium/ Sodium Chloride (HEPARIN for ARTERIAL LINE FLUSH) 1,000 unit 1X ONCE IART Last administered on 05/30/18at 04:55; Start 05/30/18 at 04:30; Stop 05/30/18 at 04:31; Status DC Midazolam HCl (Versed) 2 mg 1X ONCE IV Last administered on 05/30/18at 04:58; Start 05/30/18 at 04:30; Stop 05/30/18 at 04:31; Status DC Fentanyl Citrate (Fentanyl 2ml Vial) 100 mcg 1X ONCE IV Last administered on 04:58; Start 05/30/18 at 04:30; Stop 05/30/18 at 04:31; Status DC Iodixanol (Visipaque 320) 100 ml 1X ONCE IART Last administered on 3/20/19at 04:55; Start 05/30/18 at 04:30; Stop 05/30/18 at 04:31; Status DC Lidocaine HCl (Lidocaine 1% 20ml Vial) 20 ml 1X ONCE INJ Last administered on 05/30/18at 04:56; Start 05/30/18 at 04:30; Stop 05/30/18 at 04:31; Status DC Iodixanol (Visipaque 320) 100 ml STK-MED ONCE .ROUTE ; Start 05/30/18 at 04:25; Stop 05/30/18 at 04:26; Status DC Nicardipine HCl (Cardene) 25 mg STK-MED ONCE IV ; Start 05/30/18 at 04:31; Stop 05/30/18 at 04:32; Status DC Nicardipine HCl 50 mg/Sodium Chloride 250 ml @ 25 mls/hr CONT PRN IV SEE I/O RECORD Last administered on 05/30/18at 04:43; Start 05/30/18 at 04:45 Hydralazine HCl (Apresoline Inj) 20 mg STK-MED ONCE .ROUTE ; Start 05/30/18 at 04:35; Stop 05/30/18 at 04:36; Status DC Hydralazine HCl (Apresoline Inj) 10 mg 1X ONCE IVP Last administered on at 04:57; Start 05/30/18 at 05:00; Stop 05/30/18 at 05:01; Status DC Sodium Chloride (Normal Saline Flush) 3 ml QSHIFT PRN IV AFTER MEDS AND BLOOD DRAWS; Start 05/30/18 at 05:00 Acetaminophen (Tylenol) 650 mg PRN Q6HRS PRN PO MILD PAIN / TEMP; Start at 05:00 Fentanyl Citrate (Fentanyl 2ml Vial) 50 mcg PRN Q1HR PRN IV MODERATE OR SEVERE PAIN Last administered on 05/30/18at 12:22; Start 05/30/18 at 05:00 Nitroglycerin (Nitrostat) 0.4 mg PRN Q5MIN PRN SL CHEST PAIN; Start 05/30/18 at 05:00 Amiodarone HCl 150 mg/Dextrose 103 ml @ 600 mls/hr 1X PRN PRN IV FOR VENTRICULAR TACHYCARDIA; Start 05/30/18 at 05:00 Lidocaine HCl (Lidocaine HCl 2% Abboject) 100 mg 1X PRN PRN IV FOR VENTRICULAR TACHYCARDIA; Start 05/30/18 at 05:00 Atropine Sulfate (ATROPINE 0.5mg SYRINGE) 0.5 mg PRN 1X PRN IV BRADYCARDIA; Start 05/30/18 at 05:00 Heparin Sodium/ Dextrose 500 ml @ 0 mls/hr CONT PRN IV SEE I/O RECORD Last administered on 05/31/18at 04:16; Start 05/30/18 at 05:30 Heparin Sodium (Porcine) (Heparin Sodium) 1,950 unit PRN Q6HRS PRN IV FOR UFH LEVEL LESS THAN 0.2 Last administered on 05/30/18at 20:07; Start 05/30/18 at 05: 30 Info (Anti-Coagulation Monitoring By Pharmacy) 1 each PRN DAILY PRN MC SEE COMMENTS Last administered on 05/30/18at 05:26; Start 05/30/18 at 05:30 Aspirin (Ecotrin) 81 mg DAILYWBKFT PO Last administered on 05/31/18at 08:30; Start 05/30/18 at 14:30 Atorvastatin Calcium (Lipitor) 40 mg QHS PO Last administered on 05/30/18at 20: 38; Start 05/30/18 at 21:00 Lisinopril (Prinivil) 10 mg DAILY PO Last administered on 05/31/18at 08:30; Start 05/31/18 at 09:00 Labetalol HCl (Normodyne Iv Push) 20 mg PRN Q2HR PRN IVP HYPERTENSION, SEE COMMENTS; Start 05/30/18 at 14:45 Lisinopril (Prinivil) 10 mg 1X ONCE PO Last administered on 05/30/18at 15:01; Start 05/30/18 at 15:00; Stop 05/30/18 at 15:01; Status DC Metoprolol Tartrate (Lopressor) 12.5 mg BID PO ; Start 05/31/18 at 21:00 Apixaban (Eliquis) 5 mg BID PO ; Start 05/31/18 at 21:00 Active Scripts Active Reported Lisinopril 10 Mg Tablet 1 Tab PO DAILY Vitals/I & O Vital Sign - Last 24 Hours 05/30/18 05/30/18 05/30/18 05/30/18 12:22 13:00 13:00 14:00 Pulse 98 84 Resp 18 18 18 18 B/P (MAP) 138/84 (102) 119/75 (90) Pulse Ox 96 93 96 94 O2 Delivery Room Air Room Air Room Air Room Air 05/30/18 05/30/18 05/30/18 05/30/18 15:01 16:00 18:42 19:15 Temp 98.4 98.6 98.5 98.4 98.6 98.5 Pulse 87 80 96 84 Resp 16 18 18 B/P (MAP) 136/99 143/88 (106) 109/68 (82) 113/77 (89) Pulse Ox 93 94 97 O2 Delivery Room Air Room Air Room Air 05/30/18 05/30/18 05/31/18 05/31/18 20:00 23:00 03:50 07:26 Temp 98.1 97.7 98.1 98.1 97.7 98.1 Pulse 83 82 83 Resp 16 17 18 B/P (MAP) 125/78 (94) 117/73 (88) 125/86 (99) Pulse Ox 94 91 93 O2 Delivery Room Air Room Air Room Air Room Air 05/31/18 05/31/18 05/31/18 08:00 08:30 11:10 Temp 97.9 97.9 Pulse 81 80 Resp 18 B/P (MAP) 125/86 121/70 (87) Pulse Ox 94 O2 Delivery Room Air Room Air O2 Flow Rate 2.0 Intake and Output 05/30/18 05/30/18 05/31/18 14:59 22:59 06:59 Intake Total 880 ml 656.15 ml 473 ml Output Total 750 ml 525 ml Balance 130 ml 131.15 ml 473 ml STEVEN RODRIGUEZ MD May 31, 2018 12:00
[2018-05-31] MEDS ORDERED: APIXABAN 5 MG TABLET. PO SCH (12:30)
--- NOTE | 2018-05-31 12:57 | NUR ---
SS following up with discharge planning. SS reviewed pt chart. Pt is from home and is currently on room air. No discharge needs noted at this time. SS will continue to follow for pending discharge needs.
--- NOTE | 2018-05-31 14:48 | PDOC3 ---
Discharge Summary Date of Admission: May 30, 2018 Date of Discharge: May 31, 2018 Follow-Up: 3-5 days Admitting Diagnosis comment: DISCHARGE DX Assessment/Plan STEMI code the emergency department status post left heart catheter with no amenable lesions for stenting Hypertension Dyslipidemia Plan: CVC unit May discharge from a CV standpoint and f/u with Dr. Montoya as scheduled feeling ok, agrees to stop smoking, neds off work until sees PCP D/C PLANNING 34 MIN Vitals Vitals Vital Signs Date Time Temp Pulse Resp B/P (MAP) Pulse Ox O2 Delivery O2 Flow Rate FiO2 05/31/18 11:10 97.9 80 18 121/70 (87) 94 Room Air 97.9 05/31/18 08:00 2.0 Physical Exam Physical Exam Constitutional: Well developed, well nourished, no acute distress, non-toxic appearance. [] HENT: Normocephalic, atraumatic, bilateral external ears normal, oropharynx moist, no oral exudates, nose normal. [] Eyes: PERRLA, EOMI, conjunctiva normal, no discharge. [] Neck: Normal range of motion, no tenderness, supple, no stridor. [] Cardiovascular:Heart rate regular rhythm, 2/6 murmur Lungs & Thorax: Bilateral breath sounds clear to auscultation [] Abdomen: Bowel sounds normal, soft, no tenderness, no masses, no pulsatile masses. [] Skin: Warm, dry, no erythema, no rash. [] Back: No tenderness, no CVA tenderness. [] Extremities: No tenderness, no cyanosis, no clubbing, ROM intact, no edema. [] Neurologic: Alert and oriented X 3, normal motor function, normal sensory function, no focal deficits noted. [] General: Alert, Oriented X3, Cooperative, No acute distress Heart: Regular rate Lungs: Clear Extremities: No cyanosis Brief Hospital Course Mr. Dalton is a 62 old [sex] who presented with [ stemi ] CONDITION AT DISCHARGE: Improved Discharge Medications Current Medications Heparin Sodium (Porcine) (Heparin Sodium) 10,000 unit STK-MED ONCE .ROUTE ; Start 05/30/18 at 03:17; Stop 05/30/18 at 03:18; Status DC Heparin Sodium/ Dextrose 0 ml @ As Directed STK-MED ONCE IV ; Start 05/30/18 at 03:17; Stop 05/30/18 at 03:18; Status DC Aspirin (Children'S Aspirin) 324 mg 1X ONCE PO Last administered on 05/30/18at 03:42; Start 05/30/18 at 04:00; Stop 05/30/18 at 04:01; Status DC Fentanyl Citrate (Fentanyl 2ml Vial) 50 mcg 1X ONCE IV Last administered on at 03:42; Start 05/30/18 at 04:00; Stop 05/30/18 at 04:01; Status DC Heparin Sodium (Porcine) (Heparin Sodium) 4,000 unit 1X ONCE IV Last administered on 05/30/18at 03:18; Start 05/30/18 at 04:00; Stop 05/30/18 at 04:01 ; Status DC Iodixanol (Visipaque 320) 100 ml STK-MED ONCE .ROUTE ; Start 05/30/18 at 03:44; Stop 05/30/18 at 03:45; Status DC Lidocaine HCl (Lidocaine 1% 20ml Vial) 20 ml STK-MED ONCE .ROUTE ; Start at 03:44; Stop 05/30/18 at 03:45; Status DC Heparin Sodium/ Sodium Chloride 1,000 ml @ As Directed STK-MED ONCE .ROUTE ; Start 05/30/18 at 03:44; Stop 05/30/18 at 03:45; Status DC Fentanyl Citrate (Fentanyl 2ml Vial) 100 mcg STK-MED ONCE .ROUTE ; Start at 03:45; Stop 05/30/18 at 03:46; Status DC Midazolam HCl (Versed) 2 mg STK-MED ONCE .ROUTE ; Start 05/30/18 at 03:45; Stop 05/30/18 at 03:46; Status DC Heparin Sodium (Porcine) (Heparin Sodium) 10,000 unit STK-MED ONCE .ROUTE ; Start 05/30/18 at 03:45; Stop 05/30/18 at 03:46; Status DC Verapamil HCl (Verapamil) 5 mg STK-MED ONCE .ROUTE ; Start 05/30/18 at 03:45; Stop 05/30/18 at 03:46; Status DC Nitroglycerin (Nitroglycerin) 200 mcg STK-MED ONCE .ROUTE ; Start 05/30/18 at 03 :45; Stop 05/30/18 at 03:46; Status DC Nitroglycerin/ Dextrose 250 ml @ 0 mls/hr 1X ONCE IV Last administered on 05/30at 03:52; Start 05/30/18 at 04:00; Stop 05/30/18 at 04:01; Status DC Nitroglycerin (Nitroglycerin) 200 mcg 1X ONCE IART Last administered on at 04:15; Start 05/30/18 at 04:15; Stop 05/30/18 at 04:23; Status DC Verapamil HCl (Verapamil) 2.5 mg 1X ONCE IART Last administered on 05/30/18at 04:57; Start 05/30/18 at 04:30; Stop 05/30/18 at 04:31; Status DC Heparin Sodium (Porcine) (Heparin Sodium) 2,500 unit 1X ONCE IART Last administered on 05/30/18at 04:56; Start 05/30/18 at 04:30; Stop 05/30/18 at 04:31 ; Status DC Heparin Sodium/ Sodium Chloride (HEPARIN for ARTERIAL LINE FLUSH) 1,000 unit 1X ONCE IART Last administered on 05/30/18at 04:55; Start 05/30/18 at 04:30; Stop 05/30/18 at 04:31; Status DC Heparin Sodium/ Sodium Chloride (HEPARIN for ARTERIAL LINE FLUSH) 1,000 unit 1X ONCE IART Last administered on 05/30/18at 04:55; Start 05/30/18 at 04:30; Stop 05/30/18 at 04:31; Status DC Midazolam HCl (Versed) 2 mg 1X ONCE IV Last administered on 05/30/18at 04:58; Start 05/30/18 at 04:30; Stop 05/30/18 at 04:31; Status DC Fentanyl Citrate (Fentanyl 2ml Vial) 100 mcg 1X ONCE IV Last administered on at 04:58; Start 05/30/18 at 04:30; Stop 05/30/18 at 04:31; Status DC Iodixanol (Visipaque 320) 100 ml 1X ONCE IART Last administered on 05/30/18at 04:55; Start 05/30/18 at 04:30; Stop 05/30/18 at 04:31; Status DC Lidocaine HCl (Lidocaine 1% 20ml Vial) 20 ml 1X ONCE INJ Last administered on 05/30/18at 04:56; Start 05/30/18 at 04:30; Stop 05/30/18 at 04:31; Status DC Iodixanol (Visipaque 320) 100 ml STK-MED ONCE .ROUTE ; Start 05/30/18 at 04:25; Stop 05/30/18 at 04:26; Status DC Nicardipine HCl (Cardene) 25 mg STK-MED ONCE IV ; Start 05/30/18 at 04:31; Stop 05/30/18 at 04:32; Status DC Nicardipine HCl 50 mg/Sodium Chloride 250 ml @ 25 mls/hr CONT PRN IV SEE I/O RECORD Last administered on 05/30/18at 04:43; Start 05/30/18 at 04:45 Hydralazine HCl (Apresoline Inj) 20 mg STK-MED ONCE .ROUTE ; Start 05/30/18 at 04:35; Stop 05/30/18 at 04:36; Status DC Hydralazine HCl (Apresoline Inj) 10 mg 1X ONCE IVP Last administered on at 04:57; Start 05/30/18 at 05:00; Stop 05/30/18 at 05:01; Status DC Sodium Chloride (Normal Saline Flush) 3 ml QSHIFT PRN IV AFTER MEDS AND BLOOD DRAWS; Start 05/30/18 at 05:00 Acetaminophen (Tylenol) 650 mg PRN Q6HRS PRN PO MILD PAIN / TEMP; Start at 05:00 Fentanyl Citrate (Fentanyl 2ml Vial) 50 mcg PRN Q1HR PRN IV MODERATE OR SEVERE PAIN Last administered on 05/30/18at 12:22; Start 05/30/18 at 05:00 Nitroglycerin (Nitrostat) 0.4 mg PRN Q5MIN PRN SL CHEST PAIN; Start 05/30/18 at 05:00 Amiodarone HCl 150 mg/Dextrose 103 ml @ 600 mls/hr 1X PRN PRN IV FOR VENTRICULAR TACHYCARDIA; Start 05/30/18 at 05:00 Lidocaine HCl (Lidocaine HCl 2% Abboject) 100 mg 1X PRN PRN IV FOR VENTRICULAR TACHYCARDIA; Start 05/30/18 at 05:00 Atropine Sulfate (ATROPINE 0.5mg SYRINGE) 0.5 mg PRN 1X PRN IV BRADYCARDIA; Start 05/30/18 at 05:00 Heparin Sodium/ Dextrose 500 ml @ 0 mls/hr CONT PRN IV SEE I/O RECORD Last administered on 05/31/18at 04:16; Start 05/30/18 at 05:30; Stop 05/31/18 at 12:11 ; Status DC Heparin Sodium (Porcine) (Heparin Sodium) 1,950 unit PRN Q6HRS PRN IV FOR UFH LEVEL LESS THAN 0.2 Last administered on 05/30/18at 20:07; Start 05/30/18 at 05: 30; Stop 05/31/18 at 12:11; Status DC Info (Anti-Coagulation Monitoring By Pharmacy) 1 each PRN DAILY PRN MC SEE COMMENTS Last administered on 05/30/18at 05:26; Start 05/30/18 at 05:30 Aspirin (Ecotrin) 81 mg DAILYWBKFT PO Last administered on 05/31/18at 08:30; Start 05/30/18 at 14:30 Atorvastatin Calcium (Lipitor) 40 mg QHS PO Last administered on 05/30/18at 20: 38; Start 05/30/18 at 21:00 Lisinopril (Prinivil) 10 mg DAILY PO Last administered on 05/31/18at 08:30; Start 05/31/18 at 09:00 Labetalol HCl (Normodyne Iv Push) 20 mg PRN Q2HR PRN IVP HYPERTENSION, SEE COMMENTS; Start 05/30/18 at 14:45 Lisinopril (Prinivil) 10 mg 1X ONCE PO Last administered on 05/30/18at 15:01; Start 05/30/18 at 15:00; Stop 05/30/18 at 15:01; Status DC Metoprolol Tartrate (Lopressor) 12.5 mg BID PO ; Start 05/31/18 at 21:00 Apixaban (Eliquis) 5 mg BID PO Last administered on 05/31/18at 14:40; Start at 12:30 Active Scripts Active Reported Lisinopril 10 Mg Tablet 1 Tab PO DAILY Vital Signs Vital Signs Date Time Temp Pulse Resp B/P (MAP) Pulse Ox O2 Delivery O2 Flow Rate FiO2 05/31/18 11:10 97.9 80 18 121/70 (87) 94 Room Air 97.9 05/31/18 08:00 2.0 Labs Laboratory Tests Test 05/30/18 03:17 05/30/18 06:00 05/30/18 06:08 05/30/18 09:20 White Blood Count 15.2 x10^3/uL (4.0-11.0) Red Blood Count 5.50 x10^6/uL (4.30-5.70) Hemoglobin 16.9 g/dL (13.0-17.5) Hematocrit 50.2 % (39.0-53.0) Mean Corpuscular Volume 91 fL (79-100) Mean Corpuscular Hemoglobin 31 pg (25-35) Mean Corpuscular Hemoglobin Concent 34 g/dL (31-37) Red Cell Distribution Width 14.1 % (11.5-14.5) Platelet Count 277 x10^3/uL (140-400) Neutrophils (%) (Auto) 75 % (31-73) Lymphocytes (%) (Auto) 15 % (24-48) Monocytes (%) (Auto) 8 % (0-9) Eosinophils (%) (Auto) 1 % (0-3) Basophils (%) (Auto) 1 % (0-3) Neutrophils # (Auto) 11.4 x10^3uL (1.8-7.7) Lymphocytes # (Auto) 2.3 x10^3/uL (1.0-4.8) Monocytes # (Auto) 1.3 x10^3/uL (0.0-1.1) Eosinophils # (Auto) 0.1 x10^3/uL (0.0-0.7) Basophils # (Auto) 0.1 x10^3/uL (0.0-0.2) Prothrombin Time 11.5 SEC (11.7-14.0) Prothromb Time International Ratio 0.9 (0.8-1.1) Sodium Level 138 mmol/L (136-145) Potassium Level 4.4 mmol/L (3.5-5.1) Chloride Level 100 mmol/L (98-107) Carbon Dioxide Level 25 mmol/L (21-32) Anion Gap 13 (6-14) Blood Urea Nitrogen 33 mg/dL (8-26) Creatinine 1.3 mg/dL (0.7-1.3) Estimated GFR (Cockcroft-Gault) 56.1 BUN/Creatinine Ratio 25 (6-20) Glucose Level 114 mg/dL (70-99) Calcium Level 9.2 mg/dL (8.5-10.1) Total Bilirubin 0.6 mg/dL (0.2-1.0) Aspartate Amino Transf (AST/SGOT) 18 U/L (15-37) Alanine Aminotransferase (ALT/SGPT) 24 U/L (16-63) Alkaline Phosphatase 109 U/L (46-116) Troponin I Quantitative 0.185 ng/mL (0.000-0.055) 1.205 ng/mL (0.000-0.055) 6.613 ng/mL (0.000-0.055) IC-Ysi-T-Type Natriuretic Peptide 68 pg/mL (0-124) Total Protein 7.3 g/dL (6.4-8.2) Albumin 3.8 g/dL (3.4-5.0) Albumin/Globulin Ratio 1.1 (1.0-1.7) Nasal Screen MRSA (PCR) Negative (Negative) Triglycerides Level 111 mg/dL (0-150) Cholesterol Level 222 mg/dL (0-200) LDL Cholesterol, Calculated 158 mg/dL (0-100) VLDL Cholesterol, Calculated 22 mg/dL (0-40) Non-HDL Cholesterol Calculated 180 mg/dL (0-129) HDL Cholesterol 42 mg/dL (40-60) Cholesterol/HDL Ratio 5.3 Test 05/30/18 11:35 05/30/18 19:15 05/31/18 01:55 05/31/18 08:15 Heparin Anti-Xa Act, Unfractionated < 0.10 IU/mL (0.30-0.70) 0.11 IU/mL (0.30-0.70) 0.43 IU/mL (0.30-0.70) 0.40 IU/mL (0.30-0.70) Laboratory Tests Test 05/30/18 19:15 05/31/18 01:55 05/31/18 08:15 Heparin Anti-Xa Act, Unfractionated 0.11 IU/mL (0.30-0.70) 0.43 IU/mL (0.30-0.70) 0.40 IU/mL (0.30-0.70) Allergies Allergies Coded Allergies Type Severity Reaction Last Updated Verified No Known Drug Allergies 05/30/18 No Disposition/Orders: D/C to Home Patient Instructions D/C PLANNING 34 MIN STEVEN RODRIGUEZ MD May 31, 2018 14:48
[2018-05-31] MEDS ORDERED: APIX5TAB PO (14:51)
[2018-05-31] MEDS ORDERED: NITR0.4T SL (14:51)
[2018-05-31] MEDS ORDERED: METO25TA4 PO (14:51)
[2018-05-31] MEDS ORDERED: ATOR40TA59 PO (14:51)
[2018-05-31] MEDS ORDERED: ASPI-612 PO (14:51)
--- NOTE | 2018-05-31 14:52 | DISCH ---
DISCHARGE INSTRUCTIONS Condition on Discharge Condition on Discharge: Stable Activity After Discharge Activity Instructions for Disc: Activity as tolerated Lifting Instructions after Dis: No heavy lifting, No pulling or pushing Driving Instructions after Dis: Do not drive today Weight Bearing Status after Di: As tolerated Diet after Discharge Diet after Discharge: Cardiac Checks after Discharge Checks after discharge: Check blood press - daily Contacting the DRKatelin after DC Call your doctor for: If your condition worsens Warfarin Follow-Up Warfarin Follow UP: see pcp rafi, cardiology STEVEN Fischer MD May 31, 2018 14:52
[2018-05-31 15:21] VITALS: BP 110/73
--- NOTE | 2018-05-31 16:38 | NUR ---
Discharge Note: [facility] Discharge instructions and discharge home medications reviewed with patient and a copy given. All questions have been answered and understanding verbalized. The following instructions and handouts were given: chest pain, med packets on all medications, hypertension, small vessel dx Discontinued lines and drains: 2 peripheral IV's. Patient discharged to home via wheelchair in private vehicle
[2018-05-31] MEDS ORDERED: METOPROLOL TART IMMED RELEASE 25 MG TABLET. PO SCH (21:00)
== END 2018-05-31 15:45 | disposition home or self-care (01) | DRG 282 ==
LOC: ER 03:04 → 1 WEST ICU 03:10 → 2 SOUTH 19:15
PROVIDERS: ADMIT Internal Medicine; ATTEND Internal Medicine
PROC: 4A023N7 Measurement of Cardiac Sampling and Pressure, Left Heart, Percutaneous Approach (ICD-10-PCS; principal; 2018-05-30)
PROC: B2111ZZ Fluoroscopy of Multiple Coronary Arteries using Low Osmolar Contrast (ICD-10-PCS; 2018-05-30)
PROC: B2151ZZ Fluoroscopy of Left Heart using Low Osmolar Contrast (ICD-10-PCS; 2018-05-30)
PROC: B31P1ZZ Fluoroscopy of Thoraco-Abdominal Aorta using Low Osmolar Contrast (ICD-10-PCS; 2018-05-30)
DX: I21.19 ST elevation (STEMI) myocardial infarction involving other coronary artery of inferior wall (principal); Z82.49 Family history of ischemic heart disease and other diseases of the circulatory system; E78.5 Hyperlipidemia, unspecified; I10 Essential (primary) hypertension; F17.200 Nicotine dependence, unspecified, uncomplicated; F12.90 Cannabis use, unspecified, uncomplicated
CPT/HCPCS: 36415; 71045; 80053; 80061; 83880; 84484; 85025; 85520; 85610; 87641; 93005; 93306; 93458; 93567; 96365; 96375; 99152; 99153; 99406; C1769; C1887; C1892; J0360; J1644; J2250; J3010; J3490; J7050; Q9967; 99291-25; J7030

== ENCOUNTER 2019-07-04 10:25 | Inpatient (IN) | payer BC ==
[2019-07-04] VITALS (10 sets, daily range): BP systolic 130–171; BP diastolic 76–98
[~2019-07-04] VITALS: Ht 180.3 cm; Wt 74.5 kg
[~2019-07-04 10:25] MED LIST: APIX5TAB PO; ASPI-612 PO; ATOR40TA59 PO; LISI10TA2 PO; METO25TA4 PO; NITR0.4T24 SL
[2019-07-04] MEDS ORDERED: NITROGLYCERIN SUBLINGUAL 0.4 MG BOTTLE OF 25. SL PRN (12:00)
[2019-07-04 12:13] LABS: BASO % 0 % (0-3); EOS # 0.1 x10^3/uL (0.0-0.7); EOS % 1 % (0-3); HEMATOCRIT 49.9 % (39.0-53.0); HEMOGLOBIN 16.9 g/dL (13.0-17.5); LYMPH # 2.5 x10^3/uL (1.0-4.8); LYMPH % 28 % (24-48); MEAN CORPUSCULAR HEMOGLOBIN 31 pg (25-35); MEAN CORPUSCULAR HGB CONC 34 g/dL (31-37); MEAN CORPUSCULAR VOLUME 90 fL (79-100); MONO # 0.8 x10^3/uL (0.0-1.1); MONO % 9 % (0-9); NEUT # 5.7 x10^3/uL (1.8-7.7); NEUT % 62 % (31-73); PLATELET COUNT 217 x10^3/uL (140-400); RED BLOOD COUNT 5.53 x10^6/uL (4.30-5.70); RED CELL DISTRIBUTION WIDTH 13.6 % (11.5-14.5); WHITE BLOOD COUNT 9.2 x10^3/uL (4.0-11.0)
[2019-07-04 12:19] LABS: GFR 75.7; POTASSIUM 4.5 mmol/L (3.5-5.1)
[2019-07-04 12:23] LABS: PROTHROMBIN TIME PATIENT 12.9 SEC (11.7-14.0)
[2019-07-04 12:24] LABS: ALBUMIN 4.3 g/dL (3.4-5.0); ALBUMIN/GLOBULIN RATIO 1.4 (1.0-1.7); TOTAL BILIRUBIN 0.9 mg/dL (0.2-1.0); TOTAL PROTEIN 7.3 g/dL (6.4-8.2)
--- NOTE | 2019-07-04 12:36 | RAD ---
Single AP view of the chest. Comparison: 05/30/2018. Indication: Chest pain Findings: The heart is at the upper limits of normal but stable. There is no pneumothorax or effusion. There is mild central anomaly basilar interstitial opacities. Impression: 1. Mild basilar Central interstitial opacities and mild enlargement of the heart suggests CHF versus volume overload. May also represent atypical infection. Electronically signed by: Niraj Garcia MD (07/04/2019 12:34 PM) [id number]
[2019-07-04 12:37] LABS: D-DIMER < 0.27 ug/mlFEU (0.00-0.50)
--- NOTE | 2019-07-04 12:41 | PHYS DOC ---
Past Medical History Past Medical History: High Cholesterol, Hypertension Past Surgical History: Other Additional Past Surgical Histo: CARDIAC CATH,NO INTERVENTION Smoking Status: Current Every Day Smoker Alcohol Use: Rarely Drug Use: Marijuana General Adult EDM: Chief Complaint: CHEST PAIN HPI: HPI: Patient is a 63 year old male who presents with states he began having chest pressure last night lasted for about 15 minutes became short of air. He states that then went away he states this morning about 9:00 the pressure came back and but not as bad as it was last night. States the pressure is chest he rates about 3 out of 10 he states is just generalized. States he is not been running a fever better rounding by also is been sick. He has a 2 pack-a-day smoker. He states that his shortness of air and the cough that he has is the same that he is always had and nothing is worse. Patient did have a cardiac cath by Dr. Montoya a year ago when no intervention was needed. Patient is on Eliquis and a baby aspirin. Patient does have a history of hypertension high cholesterol. He states that he did not take his aspirin or his blood pressure medications this morning. He states he also has not ate yet this morning. Patient denies shortness of breath, numbness or tingling, visual change, headache, dizziness, LOC, abdominal pain, nausea, vomiting, diarrhea, fever, productive cough, focal weaknesses. Review of Systems: Review of Systems: Respiratory: cough or shortness of breath. [] Cardiovascular: chest pain or denies edema. [] Heart Score: HEART Score for Chest Pain: HEART Score for Chest Pain Response (Comments) Value History Slighlty/Non-Suspicious 0 ECG Normal 0 Age >45 - < 65 1 Risk Factors 1 or 2 Risk Factors 1 Troponin >3 x Normal Limit 2 Total 4 Risk Factors: Risk Factors: DM, Current or recent (<one month) smoker, HTN, HLP, family history of CAD, obesity. Risk Scores: Score 0 - 3: 2.5% MACE over next 6 weeks - Discharge Home Score 4 - 6: 20.3% MACE over next 6 weeks - Admit for Clinical Observation Score 7 - 10: 72.7% MACE over next 6 weeks - Early Invasive Strategies Current Medications: Current Medications Medications (Trade) Dose Ordered Sig/Izzy Start Time Stop Time Status Last Admin Dose Admin Nitroglycerin (Nitrostat) 0.4 mg PRN Q5MIN PRN 07/04/19 12:00 Allergies: Allergies: Allergies Coded Allergies Type Severity Reaction Last Updated Verified No Known Drug Allergies 05/30/18 No Physical Exam: PE: Constitutional: Well developed, well nourished, no acute distress, non-toxic appearance. [] HENT: Normocephalic, atraumatic, bilateral external ears normal, oropharynx moist, no oral exudates, nose normal. [] Eyes: PERRLA, EOMI, conjunctiva normal, no discharge. [] Neck: Normal range of motion, no tenderness, supple, no stridor. [] Cardiovascular:Heart rate regular rhythm, no murmur [] Lungs & Thorax: Bilateral breath sounds upper clear and lower diminished to auscultation [] Abdomen: Bowel sounds normal, soft, no tenderness, no masses, no pulsatile masses. [] Skin: Warm, dry, no erythema, no rash. [] Back: No tenderness, no CVA tenderness. [] Extremities: No tenderness, no cyanosis, no clubbing, ROM intact, no edema. [] Neurologic: Alert and oriented X 3, normal motor function, normal sensory function, no focal deficits noted. [] Psychologic: Affect normal, judgement normal, mood normal. [] Current Patient Data: Labs: Laboratory Tests Test 07/04/19 11:55 White Blood Count 9.2 x10^3/uL (4.0-11.0) Red Blood Count 5.53 x10^6/uL (4.30-5.70) Hemoglobin 16.9 g/dL (13.0-17.5) Hematocrit 49.9 % (39.0-53.0) Mean Corpuscular Volume 90 fL (79-100) Mean Corpuscular Hemoglobin 31 pg (25-35) Mean Corpuscular Hemoglobin Concent 34 g/dL (31-37) Red Cell Distribution Width 13.6 % (11.5-14.5) Platelet Count 217 x10^3/uL (140-400) Neutrophils (%) (Auto) 62 % (31-73) Lymphocytes (%) (Auto) 28 % (24-48) Monocytes (%) (Auto) 9 % (0-9) Eosinophils (%) (Auto) 1 % (0-3) Basophils (%) (Auto) 0 % (0-3) Neutrophils # (Auto) 5.7 x10^3/uL (1.8-7.7) Lymphocytes # (Auto) 2.5 x10^3/uL (1.0-4.8) Monocytes # (Auto) 0.8 x10^3/uL (0.0-1.1) Eosinophils # (Auto) 0.1 x10^3/uL (0.0-0.7) Basophils # (Auto) 0.0 x10^3/uL (0.0-0.2) Sodium Level 142 mmol/L (136-145) Potassium Level 4.5 mmol/L (3.5-5.1) Chloride Level 103 mmol/L (98-107) Carbon Dioxide Level 28 mmol/L (21-32) Anion Gap 11 (6-14) Blood Urea Nitrogen 14 mg/dL (8-26) Creatinine 1.0 mg/dL (0.7-1.3) Estimated GFR (Cockcroft-Gault) 75.7 BUN/Creatinine Ratio 14 (6-20) Glucose Level 91 mg/dL (70-99) Calcium Level 9.0 mg/dL (8.5-10.1) Magnesium Level Pending Total Bilirubin Pending Aspartate Amino Transferase (AST) Pending Alanine Aminotransferase (ALT) Pending Alkaline Phosphatase Pending Total Protein Pending Albumin Pending Albumin/Globulin Ratio Pending Laboratory Tests 07/04/19 11:55 Laboratory Tests 07/04/19 11:55 Vital Signs: Vital Signs Date Time Temp Pulse Resp B/P (MAP) Pulse Ox O2 Delivery O2 Flow Rate FiO2 07/04/19 11:30 72 168/103 (124) 95 Room Air 07/04/19 10:42 98.8 20 98.8 EKG: EK and read by Dr. Gibson. Sinus rhythm and no STEMI. [] Radiology/Procedures: Radiology/Procedures: [] Impression: [facility] [address] [place] [address] IMAGING REPORT Signed PATIENT: SHAKIRA ANNACCOUNT: [id number] : 1955 LOCATION: ER AGE: 63 SEX: M EXAM STATUS: REG ER ORD. PHYSICIAN: NON,STAFF REASON: CHEST PAIN PROCEDURE: CHEST AP ONLY Single AP view of the chest. Comparison: 05/30/2018. Indication: Chest pain Findings: The heart is at the upper limits of normal but stable. There is no pneumothorax or effusion. There is mild central anomaly basilar interstitial opacities. Impression: 1. Mild basilar Central interstitial opacities and mild enlargement of the heart suggests CHF versus volume overload. May also represent atypical infection. Electronically signed by: Niraj Garcia MD (07/04/2019 12:34 PM) [id number] DICTATED and SIGNED BY: NIRAJ GARCIA MD DATE: 07/04/19 1234 Course & Med Decision Making: Course & Med Decision Making Pertinent Labs and Imaging studies reviewed. (See chart for details) Alert and oriented. Speaks in full clear sentences. Ambulatory with a steady gait. No extremity edema. Skin pink warm and dry. Mucous membranes moist. Patient is slightly hypertensive in the 170s. No calf tenderness with palpation. No pleuritic pain. Lungs are clear in upper lobes but diminished in lower lobes. Patients troponin is elevated at 2.112. Patient is a NSTEMI. I spoke with July ROCHE of Cardiology and she states she is coming to see him. I have spoken to Dr Dunn for admission. July ROCHE states to not give heparin or Eliquis. [] Merritt Disclaimer: Merritt Disclaimer: This electronic medical record was generated, in whole or in part, using a voice recognition dictation system. Departure Departure Impression: Primary Impression: NSTEMI (non-ST elevated myocardial infarction) Disposition: 09 ADMITTED INPATIENT Admitting Physician: YESSY Condition: STABLE Referrals: NO PCP (PCP) DOLLY CARDOZO APRN Jul 04, 2019 12:41
[2019-07-04] MEDS ORDERED: ASPIRIN 325 MG TABLET PO ONE (12:45)
--- NOTE | 2019-07-04 12:46 | PDOC2 ---
RACHELDYLAN ELIZABETH FANNIE 07/04/19 1246: CARDIAC CONSULT DATE OF CONSULT Date of Consult DATE: 07/04/19 TIME: 12:44 REASON FOR CONSULT Reason for Consult: CP REFERRING PHYSICIAN Referring Physician: Blanca Mirza APRN SOURCE Source: Chart review, Patient HISTORY OF PRESENT ILLNESS HISTORY OF PRESENT ILLNESS This is a 63 yo male who presented secondary to chest pain. Trop noted at 2, which prompted this consult. Patient reports pain began last night. Describes as pressure in his central chest. No associated dizziness, diaphoresis, palpitations, SOA, or nausea/vomiting. Pain resolved after about 15 minutes wit hout intervention. Pain returned this morning so he decided to come to the ED for further evaluation and treatment. Patient presented as STEMI in May of 2018. Underwent LHC at that time, which did not show any significant coronary artery disease. STEMI felt to be due to either small vessel disease or embolic in nature. Patient was initiated on metoprolol, statin, and Eliquis therapy. Patient reports pain to be very similar to what he experience in 2019 with STEMI. Reports compliance with medications, although did not take his usual med this am. PAST MEDICAL HISTORY Cardiovascular: HTN, IN (STEMI cath with obstructive CAD-small vessel dx vs embolic in nature ) PAST SURGICAL HISTORY Past Surgical History: No pertinent history FAMILY HISTORY Family History: Heart Disease SOCIAL HISTORY Smoke: 2 packs per day ALCOHOL: none Drugs: None Lives: with Family ALLERGIES ALLERGIES: Coded Allergies: No Known Drug Allergies (Unverified , 05/30/18) ROS Review of System 14 point ROS conducted with pertinent positives noted above in hPI PHYSICAL EXAM General: Alert, Oriented X3, Cooperative, No acute distress HEENT: Atraumatic, Mucous membr. moist/pink Lungs: Clear to auscultation, Normal air movement Heart: Regular rate, Normal S1, Normal S2 Abdomen: Soft, No tenderness Skin: No breakdown, No significant lesion Neuro: Normal speech, Sensation intact Psych/Mental Status: Mental status NL, Mood NL MUSCULOSKELETAL: Osteoarthritic changes both hands VITALS/I&O VITALS/I&O: Vital Signs Date Time Temp Pulse Resp B/P (MAP) Pulse Ox O2 Delivery O2 Flow Rate FiO2 07/04/19 11:30 72 168/103 (124) 95 Room Air 07/04/19 10:42 98.8 20 98.8 LABS Lab: Laboratory Tests Test 07/04/19 11:55 White Blood Count 9.2 x10^3/uL (4.0-11.0) Red Blood Count 5.53 x10^6/uL (4.30-5.70) Hemoglobin 16.9 g/dL (13.0-17.5) Hematocrit 49.9 % (39.0-53.0) Mean Corpuscular Volume 90 fL (79-100) Mean Corpuscular Hemoglobin 31 pg (25-35) Mean Corpuscular Hemoglobin Concent 34 g/dL (31-37) Red Cell Distribution Width 13.6 % (11.5-14.5) Platelet Count 217 x10^3/uL (140-400) Neutrophils (%) (Auto) 62 % (31-73) Lymphocytes (%) (Auto) 28 % (24-48) Monocytes (%) (Auto) 9 % (0-9) Eosinophils (%) (Auto) 1 % (0-3) Basophils (%) (Auto) 0 % (0-3) Neutrophils # (Auto) 5.7 x10^3/uL (1.8-7.7) Lymphocytes # (Auto) 2.5 x10^3/uL (1.0-4.8) Monocytes # (Auto) 0.8 x10^3/uL (0.0-1.1) Eosinophils # (Auto) 0.1 x10^3/uL (0.0-0.7) Basophils # (Auto) 0.0 x10^3/uL (0.0-0.2) Prothrombin Time 12.9 SEC (11.7-14.0) Prothrombin Time INR 1.0 (0.8-1.1) D-Dimer (Mattie) < 0.27 ug/mlFEU Sodium Level 142 mmol/L (136-145) Potassium Level 4.5 mmol/L (3.5-5.1) Chloride Level 103 mmol/L (98-107) Carbon Dioxide Level 28 mmol/L (21-32) Anion Gap 11 (6-14) Blood Urea Nitrogen 14 mg/dL (8-26) Creatinine 1.0 mg/dL (0.7-1.3) Estimated GFR (Cockcroft-Gault) 75.7 BUN/Creatinine Ratio 14 (6-20) Glucose Level 91 mg/dL (70-99) Calcium Level 9.0 mg/dL (8.5-10.1) Magnesium Level 2.0 mg/dL (1.8-2.4) Total Bilirubin 0.9 mg/dL (0.2-1.0) Aspartate Amino Transferase (AST) 40 U/L (15-37) H Alanine Aminotransferase (ALT) 23 U/L (16-63) Alkaline Phosphatase 135 U/L (46-116) H Troponin I Quantitative 2.112 ng/mL (0.000-0.055) Total Protein 7.3 g/dL (6.4-8.2) Albumin 4.3 g/dL (3.4-5.0) Albumin/Globulin Ratio 1.4 (1.0-1.7) Laboratory Tests 07/04/19 11:55 Laboratory Tests 07/04/19 11:55 HEART CATH HEART CATH CORONARY ANGIOGRAPHY: LM is a large caliber vessel with mild luminal irregularities. LAD is a large caliber vessel with normal angiographic appearance. D1 is a moderate caliber vessel with normal angiographic apeparance. LCx is a moderate caliber non-dominant vessel with mild luminal irregularities of up to 30%. OM1 is a small caliber vessel with normal angiographic appearance. OM2 is a small caliber vessel with mild luminal irregularities. RCA is a large caliber dominant vessel with with mild irregularities of up to 30% stenosis. The ostium of the RCA on initial injection suggestive of thrombus with possible embolization into the conus/right atrial branch. RPDA and RPL are moderate caliber vessels with mild luminal irregularities. Cannot rule out small distal vessel cut-off suggestive of embolic phenomenon. Overall based on normal LV function, no obvious thrombus, sustaining noted in the large vessels an intervention was deferred in favor of medical therapy with anticoagulation. Etiology is likely small vessel ischemic disease in the setting of HTN, tobacco abuse versus occult emboli. At present, no clear intervenable lesions. Conclusion 1. Probable small vessel ischemic disease versus occult embolic phenomenon 2. Normal LVEDP, Normal LV function. No significant coronary disease. 3. No evidence of aortic dissection. Recommendations ASA 81mg daily Hep gtt per protocol for 24 hours High dose statin therapy Nicardipine gtt for BP control. DATE: 05/30/18 0515 ASSESSMENT/PLAN ASSESSMENT/PLAN 1. Chest pain with typical features. Patient reports pain to be very similar to what he previously experienced with STEMI in May of 2018. Cath at that time did not show any significant obstructive CAD. Acute STEMI probable due to embolic phenomenon versus small vessel ischemic disease. Has been compliant with Eliquis. 2. NSTEMI; Initial trop 2 3. Hypertension; labile as he did not take his usual meds this am 4. Hyperlipidemia; statin 5. Tobaccoism; discussed/encouraged cessation. Reports interest in quitting Recommendations ASA, statin Resume metoprolol Hydralazine PRN Echo to assess LV systolic function Given chest pressure and NSTEMI, will plan for [facility] for further evaluation. R/b/a discussed with patient and he is agreeable MELISSA MA MD 07/05/19 1050: CARDIAC CONSULT ASSESSMENT/PLAN ASSESSMENT/PLAN Late entry for 07/04/2019 Patient seen and examined. I agree with above nurse practitioner note. Cardiac catheterization showed a left circumflex occlusion. He had multiple overlapping stents. Plan for aspirin and Plavix therapy going forward. He will also be on low-dose Xarelto for 30 days. Supportive care. Smoking cessation DYLAN RAMOS APRN Jul 04, 2019 12:46 MELISSA MA MD Jul 05, 2019 10:50
--- NOTE | 2019-07-04 12:49 | EKG ---
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
[2019-07-04] MEDS ORDERED: ONDANSETRON PF 4 MG/2 ML VIAL. IV PRN (13:00)
[2019-07-04] MEDS ORDERED: NITROGLYCERIN 200 MCG/2 ML SYRINGE FOR CATH/VASC LAB. ONE (14:44)
[2019-07-04] MEDS ORDERED: MIDAZOLAM HCL/PF 2 MG/2 ML VIAL. ONE (14:44)
[2019-07-04] MEDS ORDERED: HEPARIN for IV BOLUS 10,000 UNIT/10 ML VIAL. ONE (14:44)
[2019-07-04] MEDS ORDERED: fentaNYL PF VIAL 100 MCG/2 ML VIAL ONE (14:44)
[2019-07-04] MEDS ORDERED: VERAPAMIL 5 MG/2 ML VIAL. ONE (14:44)
[2019-07-04] MEDS ORDERED: LIDOCAINE 1% PF 2 ML VIAL. ONE (14:47)
[2019-07-04] MEDS ORDERED: ALBU2.5V8 IH (14:57)
[2019-07-04] MEDS ORDERED: LISI-130 PO (14:57)
[2019-07-04] MEDS ORDERED: METO25TA4 PO (14:57)
[2019-07-04] MEDS ORDERED: IODIXANOL 320 MG/ML 100 ML VIAL. ONE (15:02)
[2019-07-04 15:13] LABS: CHOLESTEROL/HDL RATIO 4.1
[2019-07-04] MEDS ORDERED: HEPARIN for IV BOLUS 10,000 UNIT/10 ML VIAL. IART ONE (15:30)
[2019-07-04] MEDS ORDERED: NITROGLYCERIN 200 MCG/2 ML SYRINGE FOR CATH/VASC LAB. IART ONE (15:30)
[2019-07-04] MEDS ORDERED: MIDAZOLAM HCL/PF 2 MG/2 ML VIAL. IV ONE (15:30)
[2019-07-04] MEDS ORDERED: LIDOCAINE 1% PF 2 ML VIAL. INJ ONE (15:30)
[2019-07-04] MEDS ORDERED: fentaNYL PF VIAL 100 MCG/2 ML VIAL IV ONE (15:30)
[2019-07-04] MEDS ORDERED: VERAPAMIL 5 MG/2 ML VIAL. IART ONE (15:30)
[2019-07-04] MEDS ORDERED: HEPARIN for IV BOLUS 10,000 UNIT/10 ML VIAL. IV ONE (15:30)
[2019-07-04] MEDS ORDERED: IODIXANOL 320 MG/ML 100 ML VIAL. IART ONE (15:30)
[2019-07-04] MEDS ORDERED: ATROPINE 1 MG/10 ML DISP.SYRINGE. ONE ×2 (15:32→15:33)
[2019-07-04] MEDS ORDERED: PHENYLEPHRINE in 0.9% NACL PF 1 MG/10 ML SYRINGE. IV ONE (15:39)
[2019-07-04] MEDS ORDERED: TIROFIBAN 5MG -0.9% NS 100 ML IV ONE (15:45)
[2019-07-04] MEDS ORDERED: CLOPIDOGREL BISULFATE 75 MG TABLET ONE (15:57)
[2019-07-04] MEDS ORDERED: ATROPINE 0.5 MG/5 ML DISP.SYRINGE. IV ONE (16:00)
[2019-07-04] MEDS ORDERED: CLOPIDOGREL BISULFATE 75 MG TABLET PO ONE (16:00)
[2019-07-04] MEDS ORDERED: TIROFIBAN 5MG -0.9% NS 100 ML IV PRN (16:00)
--- NOTE | 2019-07-04 16:08 | CARD ---
MR#: [id number] Date of Study: 07/04/2019 Ordering Physician: DYLAN RAMOS, Referring Physician: DYLAN RAMOS, Tech: Adri Lopez DEJA APPROVED REPORT EXAM: Two-dimensional and M-mode echocardiogram with Doppler and color Doppler. Other Information Quality : Technically Limited Technically limited study due to rib spacing/smoker INDICATION Chest Pain Non STEMI 2D DIMENSIONS RVDd2.7 (2.9-3.5cm)Left Atrium(2D)3.6 (1.6-4.0cm) IVSd1.1 (0.7-1.1cm)Aortic Root(2D)2.9 (2.0-3.7cm) LVDd4.8 (3.9-5.9cm)LVOT Diameter2.3 (1.8-2.4cm) PWd1.1 (0.7-1.1cm)LVDs3.9 (2.5-4.0cm) FS (%) 19.4 %SV43.1 ml LVEF(%)39.8 (>50%) Mitral Valve MV E Uwpqjrvc82.4cm/sMV DECEL PHFL209nf MV A Ebmfmvdx81.3cm/sE/A Ratio0.7 LEFT VENTRICLE The left ventricle is normal size. There is normal left ventricular wall thickness. The left ventricu lar systolic function is normal and the ejection fraction is low normal. EF 50%. Basal to mid inferi or wall is severely hypokinetic. Transmitral Doppler flow pattern is Grade I-abnormal relaxation yousuf john. RIGHT VENTRICLE The right ventricle is normal size. The right ventricular systolic function is normal. ATRIA The left atrium size is normal. The right atrium size is normal. The interatrial septum is intact wit h no evidence for an atrial septal defect or patent foramen ovale as noted on 2-D or Doppler imaging. AORTIC VALVE The aortic valve is calcified but opens well. Doppler and Color Flow revealed mild aortic regurgitati on. There is no significant aortic valvular stenosis. MITRAL VALVE The mitral valve is mildly thickened but opens well. There is no evidence of mitral valve prolapse. T here is no mitral valve stenosis. Doppler and Color Flow revealed no mitral valve regurgitation noted . TRICUSPID VALVE The tricuspid valve is normal in structure and function. Doppler and Color Flow revealed no tricuspid valve regurgitation noted. There is no tricuspid valve stenosis. PULMONIC VALVE The pulmonary valve is normal in structure and function. Doppler and Color Flow revealed no pulmonic valvular regurgitation. There is no pulmonic valvular stenosis. GREAT VESSELS The aortic root is normal in size. The ascending aorta is not well seen. The IVC is normal in size an d collapses >50% with inspiration. PERICARDIAL EFFUSION There is no evidence of significant pericardial effusion. Critical Notification Critical Value: No <Conclusion> Basal to mid inferior wall is severely hypokinetic. The left ventricular systolic function is normal and the ejection fraction is low normal. EF 50%. Doppler and Color Flow revealed mild aortic regurgitation. Signed by : Hermilo Montoya, Electronically Approved : 07/04/2019 16:08:09
--- NOTE | 2019-07-04 22:34 | HP ---
ADMIT DATE: 07/04/2019 CHIEF COMPLAINT: Chest pain. HISTORY OF PRESENT ILLNESS: The patient is a pleasant 63-year-old male came in with chest pain. The enzymes were bumped, his troponin. His EKG has ST elevations. I discussed the case with ER physician. The patient will be admitted. We are consulting Dr. Montoya. The patient is taken emergently to the cardiac labourers. I just arrived to the labourers. Dr. Montoya just placed 2 stents to the circumflex. The patient is being examined on the labourers table. PAST MEDICAL HISTORY: Coronary artery disease, hypertension, hyperlipidemia. ALLERGIES: None. FAMILY HISTORY: Diabetes. SOCIAL HISTORY: He is trying to quit smoking. Does not drink or take drugs. MEDICATIONS: Reviewed, please refer to the MRAD. REVIEW OF SYSTEMS: GENERAL: No history of weight change, weakness or fevers. SKIN: No bruising, hair changes or rashes. EYES: No blurred, double or loss of vision. NOSE AND THROAT: No history of nosebleeds, hoarseness or sore throat. HEART: No history of palpitations, chest pain or shortness of breath on exertion. LUNGS: Denies cough, hemoptysis, wheezing or shortness of breath. GASTROINTESTINAL: Denies changes in appetite, nausea, vomiting, diarrhea or constipation. GENITOURINARY: No history of frequency, urgency, hesitancy or nocturia. NEUROLOGIC: Denies history of numbness, tingling, tremor or weakness. PSYCHIATRIC: No history of panic, anxiety or depression. ENDOCRINE: No history of heat or cold intolerance, polyuria or polydipsia. EXTREMITIES: Denies muscle weakness, joint pain, pain on walking or stiffness. PHYSICAL EXAMINATION: VITALS: Within normal limits and are stable. GENERAL: No apparent distress. Alert and oriented. HEENT: Normal cephalic atraumatic, external auditory canals are patent EYES: Extraocular muscles are intact, pupils are equally round and reactive to light and accommodation MUSCULOSKELETAL: Well developed, well nourished, good range of motion ENDOCRINE: No thyromegaly was palpated LYMPHATICS: No cervical chain or axillary nodes were noted HEMATOPOIETIC: No bruising NECK: Supple, no JVD, no thyromegaly was noted. LUNGS: Clear to auscultation in all lung riley without rhonchi or wheezing. HEART: RRR, S1, S2 present. Peripheral pulses intact, no obvious murmurs were noted. ABDOMEN: Soft, nontender. Positive bowel sounds no organomegaly, normal bowel sounds. EXTREMITIES: He has a clean, dry and intact dressing after his cardiac catheterization. NEUROLOGIC: Normal speech, normal tone. A and O x 3, moves all extremities, no obvious focal deficits. PSYCHIATRIC: Normal affect, normal mood. Stable. SKIN: No ulcerations or rashes, good skin turgor, no jaundice. VASCULAR: Good capillary refill, neurovascular bundle appears to be intact. ASSESSMENT AND PLAN: Acute myocardial infarction, status post intervention with 2 new stents to the circumflex artery. The patient is going to go from the labourers to cardiac monitoring, serial enzymes, serial EKGs, home meds, DVT prophylaxis, full code. HARRIET SWANSON DO DR: SANJIV/michela JOB#: [id number] / [id number]
[2019-07-05 03:00] VITALS: BP 137/82
[2019-07-05 06:36] LABS: BASO % 0 % (0-3); EOS # 0.1 x10^3/uL (0.0-0.7); EOS % 2 % (0-3); HEMATOCRIT 43.8 % (39.0-53.0); HEMOGLOBIN 14.8 g/dL (13.0-17.5); LYMPH # 2.7 x10^3/uL (1.0-4.8); LYMPH % 30 % (24-48); MEAN CORPUSCULAR HEMOGLOBIN 31 pg (25-35); MEAN CORPUSCULAR HGB CONC 34 g/dL (31-37); MEAN CORPUSCULAR VOLUME 90 fL (79-100); MONO % 11 % (0-9); NEUT # 5.1 x10^3/uL (1.8-7.7); NEUT % 57 % (31-73); PLATELET COUNT 165 x10^3/uL (140-400); RED BLOOD COUNT 4.86 x10^6/uL (4.30-5.70)
[2019-07-05 06:41] LABS: ALBUMIN 3.4 g/dL (3.4-5.0); ALBUMIN/GLOBULIN RATIO 1.3 (1.0-1.7); CALCIUM 8.2 mg/dL (8.5-10.1); CREATININE 0.9 mg/dL (0.7-1.3); GFR 85.5; POTASSIUM 3.7 mmol/L (3.5-5.1)
[2019-07-05 07:00] VITALS: BP 135/86
--- NOTE | 2019-07-05 10:02 | CARD ---
MR#: [id number] Date of Study: 07/04/2019 Ordering Physician: MELISSA MA, Referring Physician: MELISSA MA, Tech: VICKEY JAIN APPROVED REPORT Technologist: VICKEY JAIN Nurse: Yamileth Gutiérrez RN Procedure(s) performed: Flouro Time: 6.8 min Dose: 121.38 Gycm2 Contrast: 130 Visi Moderate sedation: 54 minutes LHC, Coronary angiography, PCI of the LCx HISTORY : The patient is a 63 year-old male with a history of . INDICATION The indication(s) include : non-STEMI . CSHA Clinical Frailty Scale CSHA Clinical Frailty Scale: Managing Well Heart Failure Heart Failure: No PROCEDURE NARRATIVE INFORMED CONSENT: After explaining the risks and benefits of the procedure and alternatives, informed consent was obtained. The patient was brought electively to the cardiac catheterization lab. A timeout was performed confi rming the patient's name, date of , procedure, and site of procedure. All necessary personnel w ere wearing the appropriate protective equipment and radiation monitor devices. (See nursing notes for medications administered). ACCESS: The right wrist was sterilely prepped and draped in the usual fashion. The right wrist was infiltrat ed with 1 mL of 2% lidocaine for subcutaneous anesthesia. A 6 [place]ic Terumo glide sheath was inserte d into the right radial artery without difficulty. CORONARY ANGIOGRAPHY: Right and left coronary angiography was performed using a 6Fr TIG 4.0 catheter. Left ventricular en d diastolic pressure was obtained with a pigtail catheter and pullback was performed after left ventr iculography. All catheter exchanges and advancements were performed over a guidewire. CLOSURE: At case completion the right radial sheath was removed and a Terumo radial band was applied with 13 m l of air. COMPLICATIONS: The patient tolerated the procedure well and there were no immediate complications. FINDINGS: HEMODYNAMICS: LVEDP 12 mm Hg No gradient on LV to aortic pullback. AO: 128/78 LEFT VENTRICULOGRAM: EF of 50% by echo. CORONARY ANGIOGRAPHY: LM is a large caliber vessel with normal angiographic appearance. LAD is a large caliber vessel with mild luminal irregularities. LCx is a moderate caliber non-dominant vessel with mild luminal irregularities. OM1 is a moderate caliber vessel with a 100% proximal occlusion. RCA is a large caliber dominant vessel with normal angiographic appearance. RPDA and RPL are moderate caliber vessels with normal angiographic appearance. INTERVENTIONAL TECHNIQUE: Heparin and Tirofiban were used for anticoagulation. Through a 6Fr EBU 3.5 guide catheter, a 0.014'' Prowater wire was used to cross the OM1 occlusion. The lesion was angioplastied with a Trek 2.5/12 mm balloon and stented with overlapping 3.5/18 and 3.0/12 mm FREDDY. Final angiography demonstrated 0% res idual stenosis with CARLOS 2 flow. The patient received Plavix at case completion. CARLOS Flow CARLOS Flow (Pre-Intervention): CARLOS-0 CARLOS Flow (Post-Intervention): CARLOS-2 Conclusion 1. One vessel CAD with acute Lcx occlusion 2. Successful PCI of the Lcx with implantation of overlapping 3.5/18 and 3.0/12 mm FREDDY. Recommendations ASA 81mg daily Plavix 75mg daily Xarelto 2.5mg bid x 30 days High dose statin therapy Smoking cessation discussed with patient Cardiac rehab after COVID issues resolved. Signed by : Melissa Ma, Electronically Approved : 07/05/2019 10:02:37
[2019-07-05 11:35] VITALS: BP 133/76
--- NOTE | 2019-07-05 11:37 | PDOC3 ---
Discharge Summary Visit Information Date of Admission: Jul 04, 2019 Date of Discharge: Jul 05, 2019 Final Diagnosis Problems Medical Problems: (1) NSTEMI (non-ST elevated myocardial infarction) Status: Acute Brief Hospital Course Allergies Allergies Coded Allergies Type Severity Reaction Last Updated Verified No Known Drug Allergies 05/30/18 No Vital Signs GENERAL: No apparent distress. Alert and oriented. HEENT: Head normocephalic, atraumatic. NECK: Supple LUNGS: Clear to auscultation. HEART: RRR, S1, S2 present, pulses intact ABDOMEN: Soft, positive bowel sounds. EXTREMITIES: No cyanosis or edema. NEUROLOGIC: Normal speech, normal tone PSYCHIATRIC: Normal affect, normal mood. SKIN: No ulceration. Vital Signs Date Time Temp Pulse Resp B/P (MAP) Pulse Ox O2 Delivery O2 Flow Rate FiO2 07/05/19 08:00 Room Air 07/05/19 07:00 97.9 85 16 135/86 (102) 94 97.9 Lab Results Laboratory Tests Test 07/04/19 11:55 07/05/19 03:53 White Blood Count 9.2 x10^3/uL (4.0-11.0) 9.0 x10^3/uL (4.0-11.0) Red Blood Count 5.53 x10^6/uL (4.30-5.70) 4.86 x10^6/uL (4.30-5.70) Hemoglobin 16.9 g/dL (13.0-17.5) 14.8 g/dL (13.0-17.5) Hematocrit 49.9 % (39.0-53.0) 43.8 % (39.0-53.0) Mean Corpuscular Volume 90 fL (79-100) 90 fL (79-100) Mean Corpuscular Hemoglobin 31 pg (25-35) 31 pg (25-35) Mean Corpuscular Hemoglobin Concent 34 g/dL (31-37) 34 g/dL (31-37) Red Cell Distribution Width 13.6 % (11.5-14.5) 14.0 % (11.5-14.5) Platelet Count 217 x10^3/uL (140-400) 165 x10^3/uL (140-400) Neutrophils (%) (Auto) 62 % (31-73) 57 % (31-73) Lymphocytes (%) (Auto) 28 % (24-48) 30 % (24-48) Monocytes (%) (Auto) 9 % (0-9) 11 % (0-9) Eosinophils (%) (Auto) 1 % (0-3) 2 % (0-3) Basophils (%) (Auto) 0 % (0-3) 0 % (0-3) Neutrophils # (Auto) 5.7 x10^3/uL (1.8-7.7) 5.1 x10^3/uL (1.8-7.7) Lymphocytes # (Auto) 2.5 x10^3/uL (1.0-4.8) 2.7 x10^3/uL (1.0-4.8) Monocytes # (Auto) 0.8 x10^3/uL (0.0-1.1) 1.0 x10^3/uL (0.0-1.1) Eosinophils # (Auto) 0.1 x10^3/uL (0.0-0.7) 0.1 x10^3/uL (0.0-0.7) Basophils # (Auto) 0.0 x10^3/uL (0.0-0.2) 0.0 x10^3/uL (0.0-0.2) Prothrombin Time 12.9 SEC (11.7-14.0) Prothromb Time International Ratio 1.0 (0.8-1.1) D-Dimer (Mattie) < 0.27 ug/mlFEU Sodium Level 142 mmol/L (136-145) 141 mmol/L (136-145) Potassium Level 4.5 mmol/L (3.5-5.1) 3.7 mmol/L (3.5-5.1) Chloride Level 103 mmol/L (98-107) 105 mmol/L (98-107) Carbon Dioxide Level 28 mmol/L (21-32) 24 mmol/L (21-32) Anion Gap 11 (6-14) 12 (6-14) Blood Urea Nitrogen 14 mg/dL (8-26) 17 mg/dL (8-26) Creatinine 1.0 mg/dL (0.7-1.3) 0.9 mg/dL (0.7-1.3) Estimated GFR (Cockcroft-Gault) 75.7 85.5 BUN/Creatinine Ratio 14 (6-20) 19 (6-20) Glucose Level 91 mg/dL (70-99) 74 mg/dL (70-99) Calcium Level 9.0 mg/dL (8.5-10.1) 8.2 mg/dL (8.5-10.1) Magnesium Level 2.0 mg/dL (1.8-2.4) Total Bilirubin 0.9 mg/dL (0.2-1.0) 1.0 mg/dL (0.2-1.0) Aspartate Amino Transf (AST/SGOT) 40 U/L (15-37) 94 U/L (15-37) Alanine Aminotransferase (ALT/SGPT) 23 U/L (16-63) 28 U/L (16-63) Alkaline Phosphatase 135 U/L (46-116) 109 U/L (46-116) Troponin I Quantitative 2.112 ng/mL (0.000-0.055) NJ-Tub-J-Type Natriuretic Peptide 1859 pg/mL (0-124) Total Protein 7.3 g/dL (6.4-8.2) 6.0 g/dL (6.4-8.2) Albumin 4.3 g/dL (3.4-5.0) 3.4 g/dL (3.4-5.0) Albumin/Globulin Ratio 1.4 (1.0-1.7) 1.3 (1.0-1.7) Triglycerides Level 121 mg/dL (0-150) Cholesterol Level 126 mg/dL (0-200) LDL Cholesterol, Calculated 71 mg/dL (0-100) VLDL Cholesterol, Calculated 24 mg/dL (0-40) Non-HDL Cholesterol Calculated 95 mg/dL (0-129) HDL Cholesterol 31 mg/dL (40-60) Cholesterol/HDL Ratio 4.1 Laboratory Tests Test 07/04/19 11:55 07/05/19 03:53 White Blood Count 9.2 x10^3/uL (4.0-11.0) 9.0 x10^3/uL (4.0-11.0) Red Blood Count 5.53 x10^6/uL (4.30-5.70) 4.86 x10^6/uL (4.30-5.70) Hemoglobin 16.9 g/dL (13.0-17.5) 14.8 g/dL (13.0-17.5) Hematocrit 49.9 % (39.0-53.0) 43.8 % (39.0-53.0) Mean Corpuscular Volume 90 fL (79-100) 90 fL (79-100) Mean Corpuscular Hemoglobin 31 pg (25-35) 31 pg (25-35) Mean Corpuscular Hemoglobin Concent 34 g/dL (31-37) 34 g/dL (31-37) Red Cell Distribution Width 13.6 % (11.5-14.5) 14.0 % (11.5-14.5) Platelet Count 217 x10^3/uL (140-400) 165 x10^3/uL (140-400) Neutrophils (%) (Auto) 62 % (31-73) 57 % (31-73) Lymphocytes (%) (Auto) 28 % (24-48) 30 % (24-48) Monocytes (%) (Auto) 9 % (0-9) 11 % (0-9) Eosinophils (%) (Auto) 1 % (0-3) 2 % (0-3) Basophils (%) (Auto) 0 % (0-3) 0 % (0-3) Neutrophils # (Auto) 5.7 x10^3/uL (1.8-7.7) 5.1 x10^3/uL (1.8-7.7) Lymphocytes # (Auto) 2.5 x10^3/uL (1.0-4.8) 2.7 x10^3/uL (1.0-4.8) Monocytes # (Auto) 0.8 x10^3/uL (0.0-1.1) 1.0 x10^3/uL (0.0-1.1) Eosinophils # (Auto) 0.1 x10^3/uL (0.0-0.7) 0.1 x10^3/uL (0.0-0.7) Basophils # (Auto) 0.0 x10^3/uL (0.0-0.2) 0.0 x10^3/uL (0.0-0.2) Prothrombin Time 12.9 SEC (11.7-14.0) Prothromb Time International Ratio 1.0 (0.8-1.1) D-Dimer (Mattie) < 0.27 ug/mlFEU Sodium Level 142 mmol/L (136-145) 141 mmol/L (136-145) Potassium Level 4.5 mmol/L (3.5-5.1) 3.7 mmol/L (3.5-5.1) Chloride Level 103 mmol/L (98-107) 105 mmol/L (98-107) Carbon Dioxide Level 28 mmol/L (21-32) 24 mmol/L (21-32) Anion Gap 11 (6-14) 12 (6-14) Blood Urea Nitrogen 14 mg/dL (8-26) 17 mg/dL (8-26) Creatinine 1.0 mg/dL (0.7-1.3) 0.9 mg/dL (0.7-1.3) Estimated GFR (Cockcroft-Gault) 75.7 85.5 BUN/Creatinine Ratio 14 (6-20) 19 (6-20) Glucose Level 91 mg/dL (70-99) 74 mg/dL (70-99) Calcium Level 9.0 mg/dL (8.5-10.1) 8.2 mg/dL (8.5-10.1) Magnesium Level 2.0 mg/dL (1.8-2.4) Total Bilirubin 0.9 mg/dL (0.2-1.0) 1.0 mg/dL (0.2-1.0) Aspartate Amino Transf (AST/SGOT) 40 U/L (15-37) 94 U/L (15-37) Alanine Aminotransferase (ALT/SGPT) 23 U/L (16-63) 28 U/L (16-63) Alkaline Phosphatase 135 U/L (46-116) 109 U/L (46-116) Troponin I Quantitative 2.112 ng/mL (0.000-0.055) MZ-Ghw-E-Type Natriuretic Peptide 1859 pg/mL (0-124) Total Protein 7.3 g/dL (6.4-8.2) 6.0 g/dL (6.4-8.2) Albumin 4.3 g/dL (3.4-5.0) 3.4 g/dL (3.4-5.0) Albumin/Globulin Ratio 1.4 (1.0-1.7) 1.3 (1.0-1.7) Triglycerides Level 121 mg/dL (0-150) Cholesterol Level 126 mg/dL (0-200) LDL Cholesterol, Calculated 71 mg/dL (0-100) VLDL Cholesterol, Calculated 24 mg/dL (0-40) Non-HDL Cholesterol Calculated 95 mg/dL (0-129) HDL Cholesterol 31 mg/dL (40-60) Cholesterol/HDL Ratio 4.1 Brief Hospital Course HPI: 63 yo here with chest pressure like in central chest Trop noted at 2. No associated dizziness, diaphoresis, palpitations, SOA, or nausea/vomiting. Pain resolved after about 15 minutes without intervention. pain resolved. came to the ED for further evaluation and treatment. Patient presented as STEMI in May of 2018. Underwent LHC at that time, which did not show any significant coronary artery disease. STEMI felt to be due to either small vessel disease or embolic in nature. Patient was initiated on metoprolol, statin, and Eliquis therapy. Patient reports pain to be very similar to what he experience in 2019 with STEMI. Reports compliance with medications, although did not take his usual med this am. admitted for further eval ASSESSMENT/PLAN Chest pain with typical features NSTEMI; Initial trop 2 Hypertension HLD Tobacco abuse PLAN reports compliance with meds Patient reports pain to be very similar to what he previously experienced with STEMI in May of 2018. Cath at that time did not show any significant obstructive CAD. Acute STEMI probable due to embolic phenomenon versus small vessel ischemic disease. continue ASA, statin, BB. needs xarelto for 30 days LHC showed a left circumflex occlusion. He had multiple overlapping stents. counselled on smoking cessation stable for dc today with cards follow up. Supportive care. Smoking cessation Discharge Information Scheduled Apixaban (Eliquis) 5 Mg Tablet, 5 MG PO BID for heart for 30 Days, #60 Prescribed by: STEVEN RODRIGUEZ MD on 05/31/18 1457 Last Action: Reviewed on 07/04/197 by MEG SMALLS Aspirin (Aspirin Ec) 81 Mg Tablet., [facility] Days, #30 Prescribed by: STEVEN RODRIGUEZ MD on 05/31/181450 Last Action: Reviewed on 07/04/191456 by MEG SMALLS Atorvastatin Calcium (Atorvastatin Calcium) 40 Mg Tablet, 40 MG PO QHS for cholesterol for 30 Days, #30 Prescribed by: STEVEN RODRIGUEZ MD on 05/31/181450 Last Action: Reviewed on 07/04/191456 by MEG SMALLS Lisinopril (Lisinopril) 40 Mg Tablet, 1 TAB PO DAILY for heart, #30 Ref 5 (Reported) Entered as Reported by: MEG SMALLS on 07/04/191456 Last Action: New Order on 07/04/191456 by MEG SMALLS Metoprolol Tartrate (Metoprolol Tartrate) 25 Mg Tablet, 1 TAB PO DAILY for heart, #180 Ref 1 (Reported) Entered as Reported by: MEG SMALLS on 07/04/191456 Last Action: New Order on 07/04/191456 by MEG SMALLS Scheduled PRN Albuterol Sulfate (Proair Hfa Inhaler) 8.5 Gm Hfa.aer.ad, 2 PUFF IH PRN Q4-6HRS PRN for wheezing for 21 Days, #1 Ref 0 (Reported) Entered as Reported by: MEG SMALLS on 07/04/191456 Last Action: New Order on 07/04/191456 by MEG SMALLS Nitroglycerin (Nitrostat) 0.4 Mg Tab.subl, 0.4 MG SL PRN Q5MIN PRN for CHEST PAIN for 30 Days, #100 Prescribed by: STEVEN RODRIGUEZ MD on 05/31/181450 Last Action: Reviewed on 07/04/191456 by GILBERTO GARDUNO MD Jul 05, 2019 11:37
[2019-07-05] MEDS ORDERED: LISINOPRIL 20 MG TABLET PO SCH (11:45)
[2019-07-05] MEDS ORDERED: ASPIRIN ENTERIC COATED 81 MG TABLET.DR. PO SCH (11:45)
[2019-07-05] MEDS ORDERED: CLOPIDOGREL BISULFATE 75 MG TABLET PO SCH (11:45)
--- NOTE | 2019-07-05 11:51 | PDOC ---
MARY FLAHERTY ROVING SIZER 07/05/19 1151: CARDIO Progress Notes Date and Time Date of Service 07/05/2019 Time of Evaluation 1110 Subjective Subjective: No Chest Pain, No shortness of breath, No Palpitations Vitals Vitals Vital Signs Date Time Temp Pulse Resp B/P (MAP) Pulse Ox O2 Delivery O2 Flow Rate FiO2 07/05/19 11:35 98.4 69 16 133/76 (95) 94 Room Air 98.4 Weight Weight [ ] Input and Output Intake and Output Intake and Output 07/05/19 07:00 Intake Total 240 ml Output Total 400 ml Balance -160 ml Intake Oral 240 ml Output Urine Total 400 ml Laboratory Labs Laboratory Tests Test 07/04/19 11:55 07/05/19 03:53 White Blood Count 9.2 x10^3/uL (4.0-11.0) 9.0 x10^3/uL (4.0-11.0) Red Blood Count 5.53 x10^6/uL (4.30-5.70) 4.86 x10^6/uL (4.30-5.70) Hemoglobin 16.9 g/dL (13.0-17.5) 14.8 g/dL (13.0-17.5) Hematocrit 49.9 % (39.0-53.0) 43.8 % (39.0-53.0) Mean Corpuscular Volume 90 fL (79-100) 90 fL (79-100) Mean Corpuscular Hemoglobin 31 pg (25-35) 31 pg (25-35) Mean Corpuscular Hemoglobin Concent 34 g/dL (31-37) 34 g/dL (31-37) Red Cell Distribution Width 13.6 % (11.5-14.5) 14.0 % (11.5-14.5) Platelet Count 217 x10^3/uL (140-400) 165 x10^3/uL (140-400) Neutrophils (%) (Auto) 62 % (31-73) 57 % (31-73) Lymphocytes (%) (Auto) 28 % (24-48) 30 % (24-48) Monocytes (%) (Auto) 9 % (0-9) 11 % (0-9) Eosinophils (%) (Auto) 1 % (0-3) 2 % (0-3) Basophils (%) (Auto) 0 % (0-3) 0 % (0-3) Neutrophils # (Auto) 5.7 x10^3/uL (1.8-7.7) 5.1 x10^3/uL (1.8-7.7) Lymphocytes # (Auto) 2.5 x10^3/uL (1.0-4.8) 2.7 x10^3/uL (1.0-4.8) Monocytes # (Auto) 0.8 x10^3/uL (0.0-1.1) 1.0 x10^3/uL (0.0-1.1) Eosinophils # (Auto) 0.1 x10^3/uL (0.0-0.7) 0.1 x10^3/uL (0.0-0.7) Basophils # (Auto) 0.0 x10^3/uL (0.0-0.2) 0.0 x10^3/uL (0.0-0.2) Prothrombin Time 12.9 SEC (11.7-14.0) Prothromb Time International Ratio 1.0 (0.8-1.1) D-Dimer (Mattie) < 0.27 ug/mlFEU Sodium Level 142 mmol/L (136-145) 141 mmol/L (136-145) Potassium Level 4.5 mmol/L (3.5-5.1) 3.7 mmol/L (3.5-5.1) Chloride Level 103 mmol/L (98-107) 105 mmol/L (98-107) Carbon Dioxide Level 28 mmol/L (21-32) 24 mmol/L (21-32) Anion Gap 11 (6-14) 12 (6-14) Blood Urea Nitrogen 14 mg/dL (8-26) 17 mg/dL (8-26) Creatinine 1.0 mg/dL (0.7-1.3) 0.9 mg/dL (0.7-1.3) Estimated GFR (Cockcroft-Gault) 75.7 85.5 BUN/Creatinine Ratio 14 (6-20) 19 (6-20) Glucose Level 91 mg/dL (70-99) 74 mg/dL (70-99) Calcium Level 9.0 mg/dL (8.5-10.1) 8.2 mg/dL (8.5-10.1) Magnesium Level 2.0 mg/dL (1.8-2.4) Total Bilirubin 0.9 mg/dL (0.2-1.0) 1.0 mg/dL (0.2-1.0) Aspartate Amino Transf (AST/SGOT) 40 U/L (15-37) 94 U/L (15-37) Alanine Aminotransferase (ALT/SGPT) 23 U/L (16-63) 28 U/L (16-63) Alkaline Phosphatase 135 U/L (46-116) 109 U/L (46-116) Troponin I Quantitative 2.112 ng/mL (0.000-0.055) JD-Gne-H-Type Natriuretic Peptide 1859 pg/mL (0-124) Total Protein 7.3 g/dL (6.4-8.2) 6.0 g/dL (6.4-8.2) Albumin 4.3 g/dL (3.4-5.0) 3.4 g/dL (3.4-5.0) Albumin/Globulin Ratio 1.4 (1.0-1.7) 1.3 (1.0-1.7) Triglycerides Level 121 mg/dL (0-150) Cholesterol Level 126 mg/dL (0-200) LDL Cholesterol, Calculated 71 mg/dL (0-100) VLDL Cholesterol, Calculated 24 mg/dL (0-40) Non-HDL Cholesterol Calculated 95 mg/dL (0-129) HDL Cholesterol 31 mg/dL (40-60) Cholesterol/HDL Ratio 4.1 Physical Exam HEENT: Neck Supple W Full Motion Chest: Symmetric LUNGS: Clear to Auscultation Heart: S1S2, RRR (SR) Abdomen: Soft N/T Extremities: No Edema, No Calf Tenderness Neurology: alert, oriented, follow commands Other Exams ht wrist arteriotomy site intact, no erythema, swelling, neurovascular status to right hand intact Assessment Assessment 1. NSTEMI: S/P stents to LCx. EF at 50% 2. Accelerated HTN: now controlled 3. HLP 4. Tobaccoism Recommendations Dietitian consult. Smoking cessation ASA 81mg daily, Plavix 75mg daily, Xarelto 2.5mg bid x 30 days Resume metoprolol and lisinopril . HBPM. Cardiac rehab Home today follow up in 4-6 weeks ANJUM DWYER MD 07/05/191921: CARDIO Progress Notes Assessment Assessment Patient seen and examined. Agree with RN CLINICAL REVIEW's assessment and plan. s/p PCI/stents to LCX, CP free Continue DAPT BP better controlled Continue current meds and fu as scheduled MARY FLAHERTY APRN Jul 05, 2019 11:51 ANJUM DWYER MD Jul 05, 2019 19:22
[2019-07-05 12:18] VITALS: BP 133/76
[2019-07-05] MEDS ORDERED: RIVAROXABAN 10 MG TABLET. PO SCH (17:00)
[2019-07-05] MEDS ORDERED: METOPROLOL TART IMMED RELEASE 25 MG TABLET. PO SCH (21:00)
[2019-07-05] MEDS ORDERED: ATORVASTATIN CALCIUM 40 MG TABLET. PO SCH (21:00)
== END 2019-07-05 14:20 | disposition home or self-care (01) | DRG 247 ==
LOC: ER 10:25 → 2 SOUTH 12:47
PROVIDERS: ADMIT Internal Medicine; ATTEND Internal Medicine
PROC: 4A023N7 Measurement of Cardiac Sampling and Pressure, Left Heart, Percutaneous Approach (ICD-10-PCS; principal; 2019-07-04)
PROC: 027035Z Dilation of Coronary Artery, One Artery with Two Drug-eluting Intraluminal Devices, Percutaneous Approach (ICD-10-PCS; 2019-07-04)
PROC: B211YZZ Fluoroscopy of Multiple Coronary Arteries using Other Contrast (ICD-10-PCS; 2019-07-04)
PROC: B215YZZ Fluoroscopy of Left Heart using Other Contrast (ICD-10-PCS; 2019-07-04)
DX: I21.3 ST elevation (STEMI) myocardial infarction of unspecified site (principal); I10 Essential (primary) hypertension; E78.00 Pure hypercholesterolemia, unspecified; E78.5 Hyperlipidemia, unspecified; F17.210 Nicotine dependence, cigarettes, uncomplicated; I25.10 Atherosclerotic heart disease of native coronary artery without angina pectoris; Z79.01 Long term (current) use of anticoagulants; Z83.3 Family history of diabetes mellitus
CPT/HCPCS: 36415; 71045; 80053; 80061; 83735; 83880; 84484; 85025; 85379; 85610; 92928; 93005; 93306; 93458; 99152; 99153; 99285; 99406; C1725; C1769; C1874; C1887; C1892; J0461; J1644; J2250; J3010; J3490; Q9967; G0378; J3246

== ENCOUNTER 2020-08-30 17:27 | Emergency (ER) | payer BC ==
[~2020-08-30] VITALS: Ht 180.3 cm; Wt 70.4 kg
[~2020-08-30 17:27] MED LIST changes: +ALBU2.5V8 IH; -ASPI-612 PO; +ASPI-886 PO; +LISI-130 PO; +LISI10TA16 PO; -LISI10TA2 PO
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
--- NOTE | 2020-08-30 18:50 | RAD ---
Two-view left tibia-fibula dated 08/30/2020. No comparison available. Clinical data indication: Pain. FINDINGS: 2 views left tibia fibula show normal bony alignment. No displaced fracture. No acute osseous or nova cular abnormality. No periostitis or bone destruction. IMPRESSION: No acute findings. Electronically signed by: Yobany Osorio MD (08/30/2020 6:48 PM) GEE
[2020-08-30] MEDS ORDERED: TRAM-48 PO (18:57)
[2020-08-30 19:01] VITALS: BP 169/88
== END 2020-08-30 19:08 | disposition home or self-care (01) ==
LOC: ER 17:27
DX: S80.12XA Contusion of left lower leg, initial encounter (principal); I10 Essential (primary) hypertension; E78.00 Pure hypercholesterolemia, unspecified; F17.200 Nicotine dependence, unspecified, uncomplicated; I25.10 Atherosclerotic heart disease of native coronary artery without angina pectoris; W22.8XXA Striking against or struck by other objects, initial encounter; Y93.39 Activity, other involving climbing, rappelling and jumping off; Y92.89 Other specified places as the place of occurrence of the external cause; Y99.8 Other external cause status
CPT/HCPCS: 73590; 99284

== ENCOUNTER → 2020-12-04 | Outpatient (CLI) | payer BC ==
[~2020-12-04] MED LIST changes: +TRAM-48 PO
--- NOTE | 2020-12-04 11:30 | CARD ---
MR#: [id number] Date of Study: 12/04/2020 Ordering Physician: MELISSA MA, Referring Physician: MELISSA MA, Tech: Ana Luisa Perry [facility] APPROVED REPORT EXAM: Two-dimensional and M-mode echocardiogram with Doppler and color Doppler. Other Information Quality : GoodHR: 75bpm Rhythm : NSR INDICATION COPD RISK FACTORS Hypertension 2D DIMENSIONS RVDd3.3 (2.9-3.5cm)Left Atrium(2D)3.5 (1.6-4.0cm) IVSd1.0 (0.7-1.1cm)Aortic Root(2D)3.3 (2.0-3.7cm) LVDd5.2 (3.9-5.9cm)LVOT Diameter2.2 (1.8-2.4cm) PWd1.1 (0.7-1.1cm)LVDs3.4 (2.5-4.0cm) FS (%) 33.5 %SV79.7 ml LVEF(%)61.9 (>50%) Aortic Valve AoV Peak Dillon.138.6cm/sAoV VTI30.7cm AO Peak GR.7.7mmHgLVOT Peak Dillon.91.9cm/s AO Mean GR.4mmHgAVA (VMAX)2.52cm2 AI P 1/2 Ocpu054px Mitral Valve MV E Oqaslucs41.8cm/sMV DECEL [id number] MV A Egiqxxjm77.9cm/sE/A Ratio0.7 Tricuspid Valve TR P. Abrkurrr967gz/sTR Peak Gr.20mmHg LEFT VENTRICLE The left ventricle is normal size. There is normal left ventricular wall thickness. Basal posterior w all hypokinesis. The ejection fraction is 50%. Transmitral Doppler flow pattern is Grade I-abnormal r elaxation pattern. RIGHT VENTRICLE The right ventricle is normal size. There is normal right ventricular wall thickness. The right ventr icular systolic function is normal. ATRIA The left atrium size is normal. The right atrium size is normal. The interatrial septum is intact wit h no evidence for an atrial septal defect or patent foramen ovale as noted on 2-D or Doppler imaging. AORTIC VALVE The aortic valve is normal in structure and function. Doppler and Color Flow revealed mild aortic reg urgitation. There is no significant aortic valvular stenosis. MITRAL VALVE The mitral valve is normal in structure and function. There is no evidence of mitral valve prolapse. There is no mitral valve stenosis. Doppler and Color-flow revealed mild mitral regurgitation. TRICUSPID VALVE The tricuspid valve is normal in structure and function. Doppler and Color Flow revealed no tricuspid valve regurgitation noted. There is no tricuspid valve stenosis. PULMONIC VALVE The pulmonary valve is normal in structure and function. Doppler and Color Flow revealed no pulmonic valvular regurgitation. GREAT VESSELS The aortic root is normal in size. The ascending aorta is normal in size. The IVC is normal in size a nd collapses >50% with inspiration. PERICARDIAL EFFUSION There is no evidence of significant pericardial effusion. Critical Notification Critical Value: No <Conclusion> Basal posterior wall hypokinesis. The ejection fraction is 50%. Transmitral Doppler flow pattern is Grade I-abnormal relaxation pattern. Mild aortic regurgitation. Mild mitral regurgitation. There is no evidence of significant pericardial effusion. Signed by : Rei Umanzor, Electronically Approved : 12/04/2020 11:30:33
== END ==
LOC: ECHO 09:30
PROVIDERS: ATTEND Internal Medicine Cardiovascular Disease
DX: I08.0 Rheumatic disorders of both mitral and aortic valves (principal); I25.10 Atherosclerotic heart disease of native coronary artery without angina pectoris
CPT/HCPCS: 93306

== ENCOUNTER → 2020-12-09 | Outpatient (CLI) | payer BC ==
--- NOTE | 2020-12-09 17:48 | RAD ---
EXAM: XR CHEST 2V 12/09/2020 9:54 AM CLINICAL INDICATION: COPD COMPARISON: None TECHNIQUE: PA and lateral views of the chest FINDINGS: Heart is normal in size. Main pulmonary artery is enlarged, unchanged. Lungs are hyperexpa nded with lucency in the apices consistent with with COPD. No consolidation, pleural effusion, or pne umothorax. No acute osseous abnormality. IMPRESSION: 1. Findings of COPD. 2. Enlarged main pulmonary artery, which can be seen with pulmonary arterial hypertension. Electronically signed by: Jeannie Rodrigues MD (12/09/2020 5:46 PM) [id number]
== END ==
LOC: RAD 09:37
PROVIDERS: ATTEND Internal Medicine Pulmonary Disease
DX: J44.9 Chronic obstructive pulmonary disease, unspecified (principal); I77.89 Other specified disorders of arteries and arterioles; R91.8 Other nonspecific abnormal finding of lung field
CPT/HCPCS: 71046